=== PATIENT | male | born 1965 | race Caucasian/White ===

== ENCOUNTER 2019-02-25 10:49 | Inpatient (IN) | payer OTHER, MEDICAID ==
[~2019-02-25] VITALS: Ht 175.3 cm; Wt 61.3 kg
--- NOTE | 2019-02-25 10:49 | NUR ---
Patient BIBA ACLS, transferred to bed 9. RN evaluating patient at bedside.
[2019-02-25] MEDS ORDERED: NACL 0.9% 1,000 ML IV SCH ×3 (10:52→13:31)
[2019-02-25 10:56] VITALS: BP 88/58
--- NOTE | 2019-02-25 11:01 | NUR ---
XRAY AT BEDSIDE
--- NOTE | 2019-02-25 11:02 | NUR ---
LAB AT BEDSIDE
[2019-02-25] MEDS ORDERED: MULT-153 PO (11:04)
[2019-02-25] MEDS ORDERED: ONDA4TAB PO ×2 (11:04→13:54)
[2019-02-25] MEDS ORDERED: RIVA20TA PO (11:04)
[2019-02-25] MEDS ORDERED: CARV3.122 PO (11:04)
[2019-02-25] MEDS ORDERED: SIMV10TA1 PO (11:04)
[2019-02-25] MEDS ORDERED: FLEPED RC (11:04)
[2019-02-25] MEDS ORDERED: DOCU-299 PO (11:04)
[2019-02-25] MEDS ORDERED: BISA-213 RC (11:04)
[2019-02-25] MEDS ORDERED: MAGN400S60 PO (11:04)
[2019-02-25] MEDS ORDERED: FERR325E14 PO (11:04)
[2019-02-25] MEDS ORDERED: FAMO-90 PO (11:04)
[2019-02-25] MEDS ORDERED: ACET325C8 PO (11:04)
[2019-02-25] MEDS ORDERED: MELO7.5T11 PO (11:04)
[2019-02-25] MEDS ORDERED: DIVA500T1 PO (11:04)
[2019-02-25] MEDS ORDERED: AMIO200T5 PO (11:04)
[2019-02-25] MEDS ORDERED: SYN.075 PO (11:04)
[2019-02-25] MEDS ORDERED: ACET-2619 PO (11:04)
--- NOTE | 2019-02-25 11:16 | NUR ---
BP 86/60
--- NOTE | 2019-02-25 11:17 | NUR ---
BIBA FROM [facility] FOR ABNORMAL LABS-ELEVATED BUN PTS BASELINE IS NON-ORIENTED PMH-DEPRESSION, R WRIST CONTRACTURE, CONVULSIONS, SCHIZO, CEREBAL PALSY, DYSPHAGIA, FACE CELLULITITS, UNSPECIFIED LACK OF EXPECTED NORMAL PHYSYIOLOGICAL DEVELOPMENT, GENERALIZED WEAKNESS
[2019-02-25 11:21] LABS: HEMATOCRIT 33.9 % (36-52); HEMOGLOBIN 10.9 g/dL (12.0-18.0); MEAN CORPUSCULAR HEMOGLOBIN 29 pg (27-31); MEAN CORPUSCULAR HGB CONC 32 g/dL (33-37); MEAN CORPUSCULAR VOLUME 90.4 fL (80-94); PLATELET COUNT (AUTO) 190 K/uL (140-450); RED BLOOD CELL COUNT(AUTO) 3.74 MIL/uL (4.20-6.10); RED CELL DISTRIBUTION WIDTH 14.9 % (11.6-13.7); WHITE BLOOD COUNT (AUTO) 24.5 K/uL (4.8-10.8)
[2019-02-25 11:43] LABS: LYMPHOCYTES % (MANUAL) 3 % (20-46); MONOCYTES % (MANUAL) 4 % (5-12)
[2019-02-25 11:55] LABS: ANION GAP 18.8 (8-16); CARBON DIOXIDE 21.4 mmol/L (21-32); CREATININE 2.8 mg/dL (0.7-1.3); POTASSIUM 3.2 mmol/L (3.5-5.1); TOTAL BILIRUBIN 0.3 mg/dL (0.0-1.0)
--- NOTE | 2019-02-25 12:04 | NUR ---
BUN 106 AND LACTIC ACID 2.7, REPORTED TO DR WALLIS Addendum: 02/25/19 at 1205 by [email or web address] LACTIC ACID 2.6
[2019-02-25] MEDS ORDERED: NACL 0.9% 1,000 ML IV ONE (12:15)
--- NOTE | 2019-02-25 12:18 | NUR ---
DR WALLIS NOTIFIED OF PTS BP, ANOTHER BOLUS STARTED
--- NOTE | 2019-02-25 12:27 | NUR ---
DR WALLIS AT BEDSIDE
[2019-02-25] MEDS ORDERED: MORPHINE SULFATE 2 MG/ML SYR IVP PRN (12:40)
[2019-02-25] MEDS ORDERED: ACETAMINOPHEN 325 MG TAB PO PRN ×2 (12:40→13:35)
[2019-02-25] MEDS ORDERED: HYDROcodone/APAP 5/325 MG 1 TAB TAB PO PRN (12:40)
[2019-02-25] MEDS ORDERED: ONDANSETRON 4 MG/2 ML VIAL IM/IVP PRN ×2 (12:40→13:35)
[2019-02-25] MEDS ORDERED: LORazepam 2 MG/ML VIAL IM/IVP PRN ×3 (12:40→15:25)
--- NOTE | 2019-02-25 12:50 | NUR ---
RESIDENTS AT BEDSIDE
--- NOTE | 2019-02-25 12:51 | NUR ---
NO OPEN WOUNDS, PRESSURE ULCERS PRESENT UPON EXAMINATION. RESIDENTS ASSISTED
[2019-02-25 13:10] VITALS: BP 101/56
--- NOTE | 2019-02-25 13:10 | NUR ---
Patient will be admitted to care of [facility]. Admited to TELE. Will go to room 122B. Belongings list completed. Report to TONO LEUNG.
--- NOTE | 2019-02-25 13:10 | NUR ---
RECEIVED REPORT FROM ED RN DENICE. PT IS AAOX1 TO NAME. PT SKIN IS NON INTACT. PT HAS A RIGHT HIP OPEN WOUND AND A RIGHT INNER FOOT PRESSURE AREA. PHOTOS TAKEN AND PLACED IN CHART. MRSA TAKEN AND SENT TO LAB. PT HAVING DIARRHEA. STOOL SAMPLE FOR R/O C.DIFF SENT TO LAB. PT IV IN THE RIGHT AC 20G INFUSING 0.45%NA AT 125ML/HR. EXPLAINED POC TO PT BUT PT UNABLE TO VERBALIZE UNDERSTANDING. WILL MONITOR PT CLOSELY. BED IN LOW POSITION, CALL LIGHT WITHIN REACH. FALL RISK PROTOCOL IN PLACE.
[2019-02-25] MEDS ORDERED: MAGNESIUM HYDROXIDE 2400 MG/30 ML UDC PO PRN (13:40)
[2019-02-25] MEDS ORDERED: ACETAMINOPHEN EXTRA STRENGTH 500 MG TAB PO PRN (13:40)
[2019-02-25] MEDS ORDERED: SODIUM PHOSPHATE 118 ML ENEM RC PRN (13:40)
[2019-02-25] MEDS ORDERED: BISACODYL 10 MG SUPP RC PRN (13:40)
[2019-02-25 14:10] LABS: PROTHROMBIN TIME 10.8 secs (10.8-13.4)
[2019-02-25 14:32] LABS: MAGNESIUM 2.5 mg/dL (1.8-2.4); PHOSPHORUS 3.9 mg/dL (2.5-4.9); THYROID STIMULATING HORMONE 0.4 uIU/mL (0.34-3.74)
[2019-02-25] MEDS: NACL 0.45% 1,000 ML IV SCH ×2 (15:23→23:00)
--- NOTE | 2019-02-25 15:27 | NUR ---
PT SLEEPING COMFORTABLY IN BED. ALL NEEDS MET. WILL CONTINUE TO ROUND FREQUENTLY ON PT.
[2019-02-25 16:00] VITALS: BP 102/56
[2019-02-25] MEDS ORDERED: POTASSIUM CHLORIDE 40 MEQ, LIDOCAINE MPF 1% 25 MG in NACL 0.9% 250 ML IV SCH ×2 (16:00→18:00)
[2019-02-25 16:16] LABS: APPEARANCE,URINE CLEAR (CLEAR); BILIRUBIN,URINE NEGATIVE (NEGATIVE); BLOOD, URINE 1+ (NEGATIVE); COLOR,URINE YELLOW (YELLOW); LEUKOCYTE ESTERASE ,URINE 1+ (NEGATIVE); NITRITE, URINE NEGATIVE (NEGATIVE); UGLUCOSE NEGATIVE (NEGATIVE)
[2019-02-25 16:25] LABS: BARBITURATE, URINE NEG. ng/ml (NEG <=200); BENZODIAZEPINE, URINE NEG. ng/mL (NEG <=200); CANNABINOID, URINE NEG. ng/mL (NEG <=50); COCAINE, URINE NEG. ng/mL (NEG <=300); OPIATE, URINE NEG. ng/mL (NEG <=2000); PHENCYCLIDINE SCREEN,URINE NEG. ng/mL (NEG <=25)
[2019-02-25] MEDS ORDERED: AZITHROMYCIN 500 MG in DEXTROSE 5% 250 ML IV SCH (17:00)
--- NOTE | 2019-02-25 17:14 | NUR ---
PT SLEEPING. NO SIGNS OF PAIN OR DISTRESS. WILL CONTINUE TO MONITOR PT CLOSELY.
[2019-02-25] MEDS: FERROUS SULFATE 325 MG TABEC PO SCH (17:33)
--- NOTE | 2019-02-25 19:44 | NUR ---
ENDORSED PT TO SELF CONTAINED BEHAVIOR UNIT TEACHER FOR CONTINUITY OF CARE. PT INSTABLE CONDITION AT THIS TIME.
--- NOTE | 2019-02-25 19:45 | NUR ---
RECEIVED REPORT AT BEDSIDE FORM TONO LEUNG DAYSHIFT NURSE AT BEDSIDE FOR CONTINUITY OF CARE, PT IN STABLE CONDITION.
[2019-02-25 20:00] VITALS: BP 99/61
--- NOTE | 2019-02-25 20:00 | NUR ---
PT IN BED AOX1, ALL FALLS PRECAUTIONS IN PLACE. V/S FOLLOWS T 100.1 P 105 R 20 B/P 99/61 02 90% ON ROOM AIR. PT HAS NO FACIAL EXPRESSION OF PAIN OR DISTRESS. POTASSIUM RUNNING ORDERED VIA RAC 20G.
[2019-02-25] MEDS ORDERED: SIMVASTATIN 10 MG TAB PO SCH (21:00)
[2019-02-25] MEDS: CARVEDILOL 3.125 MG TAB PO SCH (21:00)
--- NOTE | 2019-02-25 21:00 | NUR ---
PT RECEIVED COLACE, DEPAKOTE AND TYLENOL FOR INCREASED TEMP. COREG HELD DUE TO LOW B/P.
[2019-02-25] MEDS: DOCUSATE SODIUM 100 MG GELCAP PO SCH (21:29)
[2019-02-25] MEDS: DIVALPROEX 500 MG TABEC PO SCH (21:30)
[2019-02-25] MEDS: ACETAMINOPHEN 325 MG TAB PO PRN (21:34)
[2019-02-26] VITALS: BP 90/57
--- NOTE | 2019-02-26 00:15 | NUR ---
PT WAS TURNED, CHANGED AND REPOSITIONED IN BED. V/S FOLLOWS T 97.9 P 93 R 18 B/P 89/57 02 94% ON ROOM AIR. ALL FALLS PRECAUTIONS IN PLACE.
--- NOTE | 2019-02-26 02:10 | NUR ---
FELICIA FROM THE LAB CALLED TO REPORT A CRITICAL RESULT OF + GRAM COCCI IN THE BLOOD. TOLD MD RODRIGUEZ, WHO WILL REFER TO DAY TEAM FOR ANY NEW ORDERS.
[2019-02-26 04:00] VITALS: BP 103/58
--- NOTE | 2019-02-26 04:00 | NUR ---
PT IN BED ALL FALLS AND SEIZURE PRECAUTIONS N PLACE. IV SITE INTACT AND RUNNING 1/2 NS AT 125MLS/HR. V/S FOLLOWS T 98.3 P 94 R 18 02 94 B/P 103/58. 02 ON ROOM AIR. PT TURNED , CHANGED AND REPOSITIONED.
[2019-02-26] MEDS: LEVOTHYROXINE 0.075 MG TAB PO SCH (06:14)
[2019-02-26] MEDS: NACL 0.45% 1,000 ML IV SCH ×3 (06:18→21:05)
[2019-02-26 06:45] LABS: BASOPHILS % (AUTO) 0.1 % (0.0-2.0); HEMATOCRIT 34.9 % (36-52); HEMOGLOBIN 11.2 g/dL (12.0-18.0); LYMPHOCYTES # (AUTO) 0.8 K/uL (2.0-11.5); LYMPHOCYTES % (AUTO) 3.9 % (20.5-51.1); MEAN CORPUSCULAR HEMOGLOBIN 29 pg (27-31); MEAN CORPUSCULAR HGB CONC 32 g/dL (33-37); MEAN CORPUSCULAR VOLUME 90.7 fL (80-94); MONOCYTES # (AUTO) 1.7 K/uL (0.8-1.0); MONOCYTES % (AUTO) 8.5 % (1.7-9.3); NEUTROPHILS # (AUTO) 17.4 K/uL (1.8-7.7); NEUTROPHILS % (AUTO) 87.5 % (42.2-75.2); PLATELET COUNT (AUTO) 157 K/uL (140-450); RED BLOOD CELL COUNT(AUTO) 3.85 MIL/uL (4.20-6.10); RED CELL DISTRIBUTION WIDTH 15.1 % (11.6-13.7); WHITE BLOOD COUNT (AUTO) 19.8 K/uL (4.8-10.8)
[2019-02-26 07:10] LABS: ANION GAP 15.1 (8-16); CARBON DIOXIDE 23.8 mmol/L (21-32); CREATININE 2.2 mg/dL (0.7-1.3); POTASSIUM 3.9 mmol/L (3.5-5.1)
--- NOTE | 2019-02-26 07:15 | NUR ---
REPORT GIVEN TO QUINN LEUNG DAYSHIFT AT BEDSIDE FOR CONTINUITY IF CARE, PT IN STABLE CONDITION.
--- NOTE | 2019-02-26 07:16 | NUR ---
RECEIVED REPORT FROM HOTEL MAINTENANCE ENGINEER NURSE HITESH FOR CONTINUITY OF CARE. PT IN STABLE CONDITION. RESPIRATIONS EVEN AND UNLABORED. IV INTACT AND PATENT. SAFETY MEASURES IN PLACE. BED IN LOW POSITION. CALL LIGHT AT BEDSIDE. BED ALARM ON. WILL CONTINUE TO MONITOR.
[2019-02-26 07:20] LABS: CHOL/HDL RATIO 4.5 (1-4.5); MAGNESIUM 2.6 mg/dL (1.8-2.4); PHOSPHORUS 3.1 mg/dL (2.5-4.9)
[2019-02-26 08:00] VITALS: BP 103/61
[2019-02-26] MEDS ORDERED: CELECOXIB 100 MG CAP PO SCH (09:00)
--- NOTE | 2019-02-26 09:45 | NUR ---
GAVE ORDERED DUE MEDICATIONS AT THIS TIME. PT TOLERATED WELL. WILL CONTINUE TO MONITOR.
[2019-02-26] MEDS: FERROUS SULFATE 325 MG TABEC PO SCH ×2 (09:54→17:56)
[2019-02-26] MEDS: AMIODARONE 200 MG TAB PO SCH (09:54)
[2019-02-26] MEDS: DOCUSATE SODIUM 100 MG GELCAP PO SCH ×2 (09:54→21:07)
[2019-02-26] MEDS: FAMOTIDINE 20 MG TAB PO SCH (09:54)
[2019-02-26] MEDS: DIVALPROEX 500 MG TABEC PO SCH ×2 (09:54→21:07)
[2019-02-26] MEDS: MULTIVITAMIN 1 TAB PO SCH (09:55)
[2019-02-26] MEDS: CARVEDILOL 3.125 MG TAB PO SCH ×2 (09:55→21:07)
[2019-02-26] MEDS: Z-GUARD PASTE TP SCH ×2 (09:55→17:13)
[2019-02-26] MEDS ORDERED: SODIUM FERRIC GLUCONATE 125 MG in NACL 0.9% 100 ML IV SCH (10:00)
[2019-02-26] MEDS: HYDROcodone/APAP 5/325 MG 1 TAB TAB PO PRN (10:01)
--- NOTE | 2019-02-26 10:42 | NUR ---
INSERTED BLAIR CATHETER AT THIS TIME. PT TOLERATED WELL. BED IN LOW POSITION. CALL LIGHT AT BEDSIDE. BED ALARM ON. WILL CONTINUE TO MONITOR.
[2019-02-26 12:00] VITALS: BP 101/59
[2019-02-26 12:14] LABS: FOLIC ACID 16.9 ng/mL (>3.0)
--- NOTE | 2019-02-26 12:41 | NUR ---
REPOSITIONED, SPONGE BATH. PT TOLERATED WELL. BED IN LOW POSITION. CALL LIGHT AT BEDSIDE. BED ALARM ON. WILL CONTINUE TO MONITOR.
--- NOTE | 2019-02-26 14:02 | NUR ---
PT LYING IN BED SLEEPING AT THIS TIME. BED IN LOW POSITION. CALL LIGHT AT BEDSIDE. BED ALARM ON. WILL CONTINUE TO MONITOR.
[2019-02-26 16:00] VITALS: BP 102/60
--- NOTE | 2019-02-26 16:30 | NUR ---
REPOSITIONED AND CHANGED AT THIS TIME. BED IN LOW POSITION. CALL LIGHT AT BEDSIDE. BED ALARM ON. WILL CONTINUE TO MONITOR.
[2019-02-26] MEDS ORDERED: FERROUS SULFATE 325 MG TABEC PO SCH (17:00)
[2019-02-26] MEDS: AZITHROMYCIN 250 MG in DEXTROSE 5% 250 ML IV SCH (17:58)
[2019-02-26] MEDS: RIVAROXABAN 15 MG TAB PO SCH (17:58)
--- NOTE | 2019-02-26 18:20 | NUR ---
PT LYING IN BED IN STABLE CONDITION SLEEPING. BED IN LOW POSITION. CALL LIGHT AT BEDSIDE. BED ALARM ON. WILL CONTINUE TO MONITOR.
--- NOTE | 2019-02-26 19:19 | NUR ---
GAVE REPORT TO ART GALLERY INTERNSHIP NURSE RAY FOR CONTINUITY OF CARE.
--- NOTE | 2019-02-26 19:20 | NUR ---
Received endorsement from AM shift RN; patient A/Ox1, aphasic, bedbound. Introduced self, updated board. On contact precautions for MRSA nares; observed and maintained. No SOB or distress noted, on room air. IV site on right antecubital, 20 gauge, running IVF at 125mL/hr. Skin non-intact; noted with right hip and right foot wounds. Bed in the lowest position, call light within reach. Initial assessment done. Will continue to monitor. Addendum: 02/26/19 at 1929 by Lior Ford RN Reynold in place.
[2019-02-26 20:00] VITALS: BP 110/61
--- NOTE | 2019-02-26 20:50 | NUR ---
Vitals taken, no SOB or distress noted.
[2019-02-26] MEDS: MUPIROCIN CA NASAL 2% 1GM TUBE NS SCH (21:05)
[2019-02-26] MEDS: CHLORHEXADINE GLUC 2% CLOTH TP SCH (21:06)
--- NOTE | 2019-02-26 21:55 | NUR ---
Due meds given with apple sauce, tolerated well.
--- NOTE | 2019-02-26 23:53 | NUR ---
Vitals taken; patient noted with desaturation of 88%; head of the bed raised and patient placed on oxygen 2LPM via nasal cannula. RT made aware. Addendum: 02/26/19 at 2355 by Lior Ford RN Wrong patient.
[2019-02-27] VITALS: BP 111/67
--- NOTE | 2019-02-27 02:11 | NUR ---
Rounds done; no SOB or distress noted.
[2019-02-27] MEDS: NACL 0.45% 1,000 ML IV SCH ×4 (02:24→22:53)
[2019-02-27] MEDS: ACETAMINOPHEN 325 MG TAB PO PRN (03:45)
--- NOTE | 2019-02-27 03:50 | NUR ---
Vitals taken; patient noted with 100.1 fever. Will medicate with PRN Tylenol for fever.
[2019-02-27 04:00] VITALS: BP 112/66
--- NOTE | 2019-02-27 05:00 | NUR ---
Temperature re-taken; noted with 97.9 temperature; fever reduced.
[2019-02-27] MEDS: LEVOTHYROXINE 0.075 MG TAB PO SCH (06:11)
--- NOTE | 2019-02-27 06:28 | NUR ---
Vitals stable, due meds given. Will endorse to AM shift RN for continuity of care.
--- NOTE | 2019-02-27 07:25 | NUR ---
RECEIVED REPORT FROM CURTAIN FITTER NURSE FOR CONTINUITY OF CARE. PT IN STABLE CONDITION. IV INTACT AND PATENT. RESPIRATIONS EVEN AND UNLABORED. SAFETY MEASURES IN PLACE. BED IN LOW POSITION. BED ALARM ON. CALL LIGHT AT BEDSIDE. WILL CONTINUE TO MONITOR.
[2019-02-27 07:38] LABS: BASOPHILS % (AUTO) 0.1 % (0.0-2.0); EOSINOPHILS % (AUTO) 0.1 % (0.0-4.0); HEMATOCRIT 28.2 % (36-52); HEMOGLOBIN 9.1 g/dL (12.0-18.0); LYMPHOCYTES # (AUTO) 0.9 K/uL (2.0-11.5); MEAN CORPUSCULAR HEMOGLOBIN 29 pg (27-31); MEAN CORPUSCULAR HGB CONC 32 g/dL (33-37); MEAN CORPUSCULAR VOLUME 90.6 fL (80-94); MONOCYTES # (AUTO) 1.3 K/uL (0.8-1.0); MONOCYTES % (AUTO) 8.3 % (1.7-9.3); NEUTROPHILS # (AUTO) 13.1 K/uL (1.8-7.7); NEUTROPHILS % (AUTO) 85.5 % (42.2-75.2); PLATELET COUNT (AUTO) 124 K/uL (140-450); RED BLOOD CELL COUNT(AUTO) 3.11 MIL/uL (4.20-6.10); RED CELL DISTRIBUTION WIDTH 14.9 % (11.6-13.7); WHITE BLOOD COUNT (AUTO) 15.3 K/uL (4.8-10.8)
[2019-02-27 07:48] LABS: ANION GAP 12.6 (8-16); CARBON DIOXIDE 22.9 mmol/L (21-32); CREATININE 1.3 mg/dL (0.7-1.3); POTASSIUM 3.5 mmol/L (3.5-5.1)
[2019-02-27 07:55] LABS: PHOSPHORUS 1.8 mg/dL (2.5-4.9)
[2019-02-27 08:00] VITALS: BP 104/68
[2019-02-27] MEDS: CARVEDILOL 3.125 MG TAB PO SCH ×2 (09:00→21:11)
[2019-02-27] MEDS: FAMOTIDINE 20 MG TAB PO SCH (09:56)
[2019-02-27] MEDS: MULTIVITAMIN 1 TAB PO SCH (09:56)
[2019-02-27] MEDS: AMIODARONE 200 MG TAB PO SCH (09:57)
[2019-02-27] MEDS: Z-GUARD PASTE TP SCH ×2 (09:57→17:18)
[2019-02-27] MEDS: DOCUSATE SODIUM 100 MG GELCAP PO SCH ×2 (09:57→21:11)
[2019-02-27] MEDS: DIVALPROEX 500 MG TABEC PO SCH ×2 (09:57→21:11)
[2019-02-27] MEDS: FERROUS SULFATE 325 MG TABEC PO SCH ×2 (09:57→17:18)
[2019-02-27] MEDS: HYDROcodone/APAP 5/325 MG 1 TAB TAB PO PRN (10:14)
--- NOTE | 2019-02-27 10:14 | NUR ---
GAVE PAIN MEDICATION AT THIS TIME. FACIAL GRIMACING.
[2019-02-27] MEDS ORDERED: SODIUM PHOS / POTASSIUM PHOS 1 PKT PDR PO SCH (11:30)
[2019-02-27 12:00] VITALS: BP 108/63
[2019-02-27] MEDS: MORPHINE SULFATE 2 MG/ML SYR IVP PRN (12:34)
--- NOTE | 2019-02-27 12:41 | NUR ---
GAVE ORDERED DUE MEDICATIONS AT THIS TIME. PT IN STABLE CONDITION. BED IN LOW POSITION. CALL LIGHT AT BEDSIDE. BED ALARM ON.
--- NOTE | 2019-02-27 13:27 | NUR ---
PATIENT HAS BEEN SCREENED AND CATEGORIZED HIGH NUTRITION RISK. PATIENT WILL BE SEEN WITHIN 1-2 DAYS OF ADMISSION. 02/26/19 - 02/27/19 CHANELL DE LA CRUZ MBA, RD
--- NOTE | 2019-02-27 14:15 | NUR ---
PT LYING IN BED IN STABLE CONDITION. RESPIRATIONS EVEN AND UNLABORED. BED IN LOW POSITION. CALL LIGHT AT BEDSIDE. BED ALARM ON.
--- NOTE | 2019-02-27 15:24 | NUR ---
02/27/19 RD INITIAL ASSESSMENT COMPLETED PLEASE REFER TO NUTRITION ASSESSMENT UNDER CARE ACTIVITY FOR ESTIMATED NUTRITIONAL NEEDS. RD RECOMMENDATIONS: 1. RECOMMEND CONTINUE PUREE DIET 2. ADD HS WITH MEALS TID WITH POOR PO INTAKES 3. F/U 2-3 DAYS; HIGH RISK CHANELL DE LA CRUZ MBA, RD
[2019-02-27 16:00] VITALS: BP 116/73
--- NOTE | 2019-02-27 16:41 | NUR ---
REPOSITIONED PT AT THIS TIME. PT TOLERATED WELL. GAVE ORDERED DUE MEDICATION AT THIS TIME. BED IN LOW POSITION. CALL LIGHT AT BEDSIDE. BED ALARM ON.
[2019-02-27] MEDS: AZITHROMYCIN 250 MG in DEXTROSE 5% 250 ML IV SCH (17:18)
[2019-02-27] MEDS: RIVAROXABAN 15 MG TAB PO SCH (17:22)
--- NOTE | 2019-02-27 18:15 | NUR ---
PT SLEEPING AT THIS TIME. RESPIRATIONS EVEN AND UNLABORED. BED IN LOW POSITION. BED ALARM ON. CALL LIGHT AT BEDSIDE. WILL CONTINUE TO MONITOR.
--- NOTE | 2019-02-27 19:30 | NUR ---
GAVE REPORT TO POURED CONCRETE WALL TECHNICIAN NURSE ROLAND FOR CONTINUITY OF CARE. PT IN STABLE CONDITION.
[2019-02-27 20:00] VITALS: BP 124/63
--- NOTE | 2019-02-27 20:00 | NUR ---
ASSUMED CARE. RECEIVED RESTING IN BED. AROUSABLE,NON-VERBAL. AFEBRILE, NOT IN ACUTE DISTRESS. NO PAIN OR DISCOMFORT NOTED. IV FLUID 1/2 NS INFUSING AT 160 ML/HR VIA RIGHT AC #20 IV LINE/ SAO2=99% ON RA. BLAIR CATHETER DRAINING CLEAR YELLOW URINE. SINUS RHYTHM AT 90'S ON THE MONITOR. VS STABLE, WILL CONTINUE TO MONITOR. NEEDS ATTENDED.
[2019-02-27] MEDS: MUPIROCIN CA NASAL 2% 1GM TUBE NS SCH (21:10)
[2019-02-27] MEDS: CHLORHEXADINE GLUC 2% CLOTH TP SCH (21:11)
--- NOTE | 2019-02-27 21:11 | NUR ---
DUE MEDICATIONS GIVEN SCHEDULED.
[2019-02-28] VITALS: BP 109/60
--- NOTE | 2019-02-28 | NUR ---
ASLEEP,NOT IN ANY KIND OF DISTRESS. NO PAIN OR DISCOMFORT NOTED. SIDE RAILS UP,CALL LIGHT WITHIN REACH. KEPT WARM AND COMFORTABLE. VS REMAIN STABLE.
[2019-02-28 04:00] VITALS: BP 105/59
--- NOTE | 2019-02-28 04:00 | NUR ---
ASLEEP, NO SIGNIFICANT CHANGE IN CONDITION. PT.REMAINS STABLE AND PAIN FREE.
[2019-02-28] MEDS: LEVOTHYROXINE 0.075 MG TAB PO SCH (06:43)
[2019-02-28] MEDS: NACL 0.45% 1,000 ML IV SCH ×4 (06:43→22:54)
--- NOTE | 2019-02-28 07:10 | NUR ---
RECEIVED REPORT FROM SHEET METAL LAYOUT MECHANIC NURSE. PATIENT IS SLEEPING IN BED, VISIBLE CHEST RISE AND FALL, ON ROOM AIR. IV TO RIGHT AC 20G. PATIENT IS A&O X1 AND BEDBOUND. WILL CONTINUE WITH PLAN OF CARE.
[2019-02-28 07:17] LABS: BASOPHILS # (AUTO) 0.1 K/uL (0.00-0.22); BASOPHILS % (AUTO) 0.4 % (0.0-2.0); EOSINOPHILS # (AUTO) 0.1 K/uL (0-0.4); EOSINOPHILS % (AUTO) 0.4 % (0.0-4.0); HEMATOCRIT 29.9 % (36-52); HEMOGLOBIN 9.4 g/dL (12.0-18.0); LYMPHOCYTES # (AUTO) 1.2 K/uL (2.0-11.5); LYMPHOCYTES % (AUTO) 7.2 % (20.5-51.1); MEAN CORPUSCULAR HEMOGLOBIN 29 pg (27-31); MEAN CORPUSCULAR HGB CONC 32 g/dL (33-37); MEAN CORPUSCULAR VOLUME 91.7 fL (80-94); MONOCYTES # (AUTO) 1.5 K/uL (0.8-1.0); MONOCYTES % (AUTO) 9.5 % (1.7-9.3); NEUTROPHILS # (AUTO) 13.4 K/uL (1.8-7.7); NEUTROPHILS % (AUTO) 82.5 % (42.2-75.2); PLATELET COUNT (AUTO) 138 K/uL (140-450); RED BLOOD CELL COUNT(AUTO) 3.26 MIL/uL (4.20-6.10); RED CELL DISTRIBUTION WIDTH 14.8 % (11.6-13.7); WHITE BLOOD COUNT (AUTO) 16.2 K/uL (4.8-10.8)
--- NOTE | 2019-02-28 07:20 | NUR ---
ENDORSED CARE TO GIOVANNA LEUNG.
[2019-02-28 07:29] LABS: ANION GAP 12.7 (8-16); CARBON DIOXIDE 23.4 mmol/L (21-32); CREATININE 1.1 mg/dL (0.7-1.3); POTASSIUM 4.1 mmol/L (3.5-5.1)
[2019-02-28 07:39] LABS: MAGNESIUM 1.8 mg/dL (1.8-2.4); PHOSPHORUS 1.8 mg/dL (2.5-4.9)
[2019-02-28 08:00] VITALS: BP 114/67
[2019-02-28] MEDS: DOCUSATE SODIUM 100 MG GELCAP PO SCH ×2 (09:00→21:14)
[2019-02-28] MEDS: Z-GUARD PASTE TP SCH ×2 (09:00→17:06)
[2019-02-28] MEDS: MULTIVITAMIN 1 TAB PO SCH (09:50)
[2019-02-28] MEDS: FAMOTIDINE 20 MG TAB PO SCH (09:50)
[2019-02-28] MEDS: CARVEDILOL 3.125 MG TAB PO SCH ×2 (09:51→21:18)
[2019-02-28] MEDS: DIVALPROEX 500 MG TABEC PO SCH ×2 (09:52→21:15)
[2019-02-28] MEDS: FERROUS SULFATE 325 MG TABEC PO SCH ×2 (09:52→17:00)
[2019-02-28] MEDS: AMIODARONE 200 MG TAB PO SCH (09:52)
--- NOTE | 2019-02-28 09:55 | NUR ---
CRUSHED MORNING MEDICATION AND MIXED WITH APPLESAUCE. PATIENT DID NOT SWALLOW THE FIRST BITE AND BEGAN COUGHING. MEDICATION WAS NOT ADMINISTERED.
[2019-02-28] MEDS: MORPHINE SULFATE 2 MG/ML SYR IVP PRN ×2 (10:54→16:15)
--- NOTE | 2019-02-28 10:57 | NUR ---
ADMINISTERED MORPHINE FOR PAIN. PATIENT WAS GRIMACING, CRYING AND GRASPING SITE. WILL RE-ASSESS
[2019-02-28] MEDS ORDERED: SODIUM PHOS / POTASSIUM PHOS 1 PKT PDR PO SCH (11:00)
[2019-02-28 12:00] VITALS: BP 106/71
--- NOTE | 2019-02-28 12:35 | NUR ---
PLACED PATIENT ON HEEL RAISERS FOR DEEP TISSUE INJURY TO FEET BILATERALLY.
--- NOTE | 2019-02-28 13:01 | NUR ---
WOUND CARE EVALUATION NOTE: REASON FOR EVALUATION: RIGHT FOOT ULCER WOUND SKIN ASSESSMENT DONE WITH THIS 54 Y/O MALE PT ADMITTED FROM [facility] TO [facility] WITH INITIAL DX OF ABNORMAL LABS. PAST MEDICAL HX INCLUDES HTN, MDD AND SCHIZOPHRENIA. PT. ADMITTED WITH MULTIPLE DTI TO RIGHT FOOT/TOES. ALL ABOVE INFORMATION OBTAINED FROM ADMISSION H&P. PT IS AWAKE. SKIN IS WARM AND DRY, CONTRACTURES TO ALL EXTREMITIES, UNABLE TO HAVE PALM AND FINGERS ASSESS DUE TO CONTRACTURES. BLE NO HAIR GROWTH, +1 EDEMAS TO BILATERAL LOWER LEGS. BILATERAL DORSAL PEDAL PULSES PRESENT AND NORMAL, FUNGAL NAILS OBSERVED. PLAN OF CARE DISCUSSED WITH PRIMARY RN AND PT. PT. VERBALIZING UNDERSTANDING INTEGUMENTARY: -OLD HEALED SCARS TO SCROTAL AREAS, LEFT ISCHIUM, SACROCOCCYX, RIGHT ISCHIUM, SKIN INTACT -PRESSURE ULCER STAGE 1 TO LEFT MEDIAL FOOT NON-BLANCHABLE REDNESS 3X2 CM -MULTIPLE DTI TO RIGHT FOOT/RIGHT HALLUX, 2ND, 3RD, 4TH AND 5TH DIGIT TOES WITH LARGEST TO RIGHT 4TH DIGIT TOE 1.5X1.5 CM AND RIGHT LATERAL METATARSAL 1.5x1.5CM -PRESSURE ULCER UN-STAGEABLE TO RIGHT HIP 0.5X0.5CM BROWN SCAB, SURROUNDING TISSUE REDNESS 1X1CM INDICATED FURTHER DAMAGE. -LEFT/RIGHT HEELS THIN CALLUS RECOMMENDATIONS: -V/A ULTRASOUNDS TO BILATERAL LOWER EXTREMITIES -APPLY HYDRAGRAN TO OLD HEALED SCARS TO SCROTAL AREAS, LEFT ISCHIUM, SACROCOCCYX, RIGHT ISCHIUM, BID AND CARL -CLEANSE RIGHT FOOT/TOES DTI WITH NS AND GAUZE, PAT DRY, APPLY SKIN PREP BID AND CARL -PAINT RIGHT HIP SCAB WITH BETADINE ANGELA. BID AND CARL -APPLY HEEL RAISER TO RIGHT AND LEFT HEELS AT ALL TIMES -OFFLOAD BILATERAL HEELS BY PLACING PILLOWS UNDER CALVES UNLESS OTHERWISE CONTRAINDICATED -PRESSURE REDISTRIBUTION SURFACE THERAPY -TURN AND REPOSITION Q2H, OFFLOAD SACRALCOCCYX BY TURNING RIGHT AND LEFT -CONTINUE TO FOLLOW RD RECOMMENDATIONS ALL ABOVE RECOMMENDATIONS DISCUSSED WITH PRIMARY RN WILL FOLLOW UP PT Q7-10 DAYS. PLEASE CONTACT WOUND CARE NURSE FOR ANY QUESTION AND CHANGE OF WOUND CONDITION.
--- NOTE | 2019-02-28 13:33 | NUR ---
*S.T. Bedside swallow eval completed* Pt presents with suspect sensory difficulty or strong texture preference to liquids that are sweetened versus savory purees and solid textures. Pt demonstrated cough and inconsistent gag response to purees and solids, but able to initiate swallows of liquids (juices, mighty milkshake) w/ straw w/o difficulty, including sequences of consecutive swallows. No overt s/s aspiration observed. Oropharyngeal dysphagia is not suspected but a behavioral response to solid textures. Recommend: 1) Continue pureed diet, thin liquids okay. Straws okay. 2) P.O. meds crushed and mixed w/ thick liquids such as shake or juice. 3) 1:1 feeder w/ aspiration precautions. Pt does not present w/ clinical dysphagia. Therefore, recommend DC to nsg care at this time. Endorsed to XOCHITL Ghosh. Time 6421-7413
[2019-02-28 16:00] VITALS: BP 110/66
--- NOTE | 2019-02-28 16:08 | NUR ---
TRANSFERRED PATIENT TO A WOUND BED. PATIENT IS IN 122-A.
--- NOTE | 2019-02-28 16:14 | NUR ---
RECEIVED CRITICAL OF LACTIC ACID OF 3.4. DR MARX MADE AWARE. NO CHANGE IN ORDERS
[2019-02-28] MEDS: ACETAMINOPHEN 325 MG TAB PO PRN (16:33)
--- NOTE | 2019-02-28 16:34 | NUR ---
ADMINISTERED TYLENOL FOR FEVER OF 100.4 CRUSHED AND MIXED WITH PUDDING.
[2019-02-28] MEDS: AZITHROMYCIN 250 MG in DEXTROSE 5% 250 ML IV SCH (17:00)
[2019-02-28] MEDS: RIVAROXABAN 15 MG TAB PO SCH (18:16)
--- NOTE | 2019-02-28 18:28 | NUR ---
HUNG AZITHROMYCIN IVPB. PATIENT IS SLEEPING IN BED, VISIBLE CHEST RISE AND FALL. WILL ENDORSE TO INFORMATION TECHNOLOGY SPECIALIST FOR CONTINUITY OF CARE.
[2019-02-28 20:00] VITALS: BP 105/57
--- NOTE | 2019-02-28 20:00 | NUR ---
ASSUMED CARE. RECEIVED RESTING IN BED. AFEBRILE, NOT IN ACUTE DISTRESS. NO PAIN OR DISCOMFORT NOTED. SAO2=99% ON ROOM AIR. IV FLUIDS 1/2 NS INFUSING AT 120 ML/HR VIA RIGHT AC #20 IV LINE. BLAIR CATHETER DRAINING CLEAR YELLOW URINE. SINUS RHYTHM AT 80'S ON THE MONITOR. VS STABLE, WILL CONTINUE TO MONITOR. NEEDS ATTENDED.
[2019-02-28] MEDS: MUPIROCIN CA NASAL 2% 1GM TUBE NS SCH (21:14)
[2019-02-28] MEDS: CHLORHEXADINE GLUC 2% CLOTH TP SCH (21:15)
--- NOTE | 2019-02-28 21:18 | NUR ---
YT=666/57. RESIDENT FITTING ROOM INSPECTOR SAID OK TO GIVE SCHEDULED COREG 3.125 MG. OTHER DUE MEDS ALSO GIVEN.
--- NOTE | 2019-02-28 23:52 | NUR ---
SYLWIA FROM THE LAB CALLED RE: LACTIC ACID=2.4 (IMPROVED). RESIDENT OSTEOPATHIC PHYSICIAN MADE AWARE.
[2019-03-01] VITALS: BP 112/72
--- NOTE | 2019-03-01 | NUR ---
ASLEEP., NOT IN ANY KIND OF DISTRESS. NO PAIN OR DISCOMFORT NOTED. SIDE RAILS UP,CALL LIGHT WITHIN REACH. KEPT WARM AND COMFORTABLE. WILL CONTINUE TO MONITOR. VS REMAIN STABLE.
[2019-03-01] MEDS: GAUZE TP SCH ×2 (01:05→13:01)
[2019-03-01] MEDS: HYDRAGUARD CREAM TP SCH ×2 (01:06→13:02)
[2019-03-01] MEDS: MORPHINE SULFATE 2 MG/ML SYR IVP PRN (01:21)
--- NOTE | 2019-03-01 01:21 | NUR ---
PT. NOTED TO BE MOANING. MORPHINE 1 MG IVP GIVEN ORDERED.
--- NOTE | 2019-03-01 02:20 | NUR ---
ASLEEP, NO PAIN OR DISCOMFORT AT THIS TIME.
[2019-03-01 04:00] VITALS: BP 111/70
--- NOTE | 2019-03-01 04:00 | NUR ---
ASLEEP, NO PAIN OR DISCOMFORT NOTED AT THIS TIME. NO SIGNIFICANT CHANGE IN CONDITION. VS REMAINS STABLE .
--- NOTE | 2019-03-01 05:20 | NUR ---
AM LABS DRAWN BY LAB.TANNING WHEEL FILLER.
[2019-03-01] MEDS: LEVOTHYROXINE 0.075 MG TAB PO SCH (06:15)
--- NOTE | 2019-03-01 06:15 | NUR ---
AWAKE, NO PAIN OR DISCOMFORT NOTED. DUE MEDICATION GIVEN.
[2019-03-01 06:41] LABS: ANION GAP 10.5 (8-16); CARBON DIOXIDE 25.8 mmol/L (21-32); CREATININE 1.1 mg/dL (0.7-1.3); POTASSIUM 4.3 mmol/L (3.5-5.1)
[2019-03-01 06:50] LABS: MAGNESIUM 1.6 mg/dL (1.8-2.4)
[2019-03-01 06:57] LABS: BASOPHILS % (AUTO) 0.1 % (0.0-2.0); EOSINOPHILS # (AUTO) 0.1 K/uL (0-0.4); EOSINOPHILS % (AUTO) 0.4 % (0.0-4.0); HEMATOCRIT 28.1 % (36-52); LYMPHOCYTES # (AUTO) 1.5 K/uL (2.0-11.5); LYMPHOCYTES % (AUTO) 8.7 % (20.5-51.1); MEAN CORPUSCULAR HEMOGLOBIN 29 pg (27-31); MEAN CORPUSCULAR HGB CONC 32 g/dL (33-37); MEAN CORPUSCULAR VOLUME 90.5 fL (80-94); MONOCYTES # (AUTO) 1.4 K/uL (0.8-1.0); MONOCYTES % (AUTO) 7.9 % (1.7-9.3); NEUTROPHILS # (AUTO) 14.4 K/uL (1.8-7.7); NEUTROPHILS % (AUTO) 82.9 % (42.2-75.2); PLATELET COUNT (AUTO) 169 K/uL (140-450); RED BLOOD CELL COUNT(AUTO) 3.11 MIL/uL (4.20-6.10); RED CELL DISTRIBUTION WIDTH 14.8 % (11.6-13.7); WHITE BLOOD COUNT (AUTO) 17.4 K/uL (4.8-10.8)
--- NOTE | 2019-03-01 07:10 | NUR ---
ENDORSED CARE TO ANGELIQUE RN STABLE.
--- NOTE | 2019-03-01 07:27 | NUR ---
Received report from nights shift nurse.
[2019-03-01 08:00] VITALS: BP 113/69
[2019-03-01] MEDS ORDERED: VANCOMYCIN PER PHARMACY MC PRN (08:40)
[2019-03-01] MEDS ORDERED: MAGNESIUM OXIDE 400 MG TAB PO SCH ×2 (08:47→18:00)
[2019-03-01] MEDS ORDERED: SODIUM PHOS / POTASSIUM PHOS 1 PKT PDR PO SCH ×2 (08:48→18:00)
[2019-03-01] MEDS: FAMOTIDINE 20 MG TAB PO SCH (09:24)
[2019-03-01] MEDS: DIVALPROEX 500 MG TABEC PO SCH ×2 (09:25→21:52)
[2019-03-01] MEDS: CARVEDILOL 3.125 MG TAB PO SCH ×2 (09:25→21:53)
[2019-03-01] MEDS: Z-GUARD PASTE TP SCH ×2 (09:26→17:10)
[2019-03-01] MEDS: DOCUSATE SODIUM 100 MG GELCAP PO SCH ×2 (09:26→21:53)
[2019-03-01] MEDS: FERROUS SULFATE 325 MG TABEC PO SCH ×2 (09:26→18:06)
[2019-03-01] MEDS: MULTIVITAMIN 1 TAB PO SCH (09:26)
[2019-03-01] MEDS: AMIODARONE 200 MG TAB PO SCH (09:26)
[2019-03-01] MEDS: NACL 0.45% 1,000 ML IV SCH (10:17)
[2019-03-01 11:00] VITALS: BP 101/61
[2019-03-01] MEDS: VANCOMYCIN 750 MG in DEXTROSE 5% 250 ML IV SCH ×2 (11:07→21:53)
--- NOTE | 2019-03-01 11:56 | NUR ---
PICC nurse paged for PICC insertion order. Awaiting call back from Walter (PICC nurse) for ETA.
--- NOTE | 2019-03-01 12:00 | NUR ---
Left voicemail for Sagrario Rivera (conservator) for PICC insertion consent. Awaiting call back. Received call from Walter PICC nurse & informed him consent still pending. Per Walter, call [phone] when consent is available.
[2019-03-01] MEDS: ACETAMINOPHEN 650 MG SUPP RC PRN (12:52)
--- NOTE | 2019-03-01 12:56 | NUR ---
Acetaminophen supp administered for fever 102.3F. Cooling measures in place: tepid sponge bath given, thick blankets removed, room temp kept cool. Pt awake, nonverbal, responsive to verbal & tactile stimuli, no SOB, no cough. Left hand IV intact with ongoing Vancomycin.
--- NOTE | 2019-03-01 13:24 | NUR ---
ASLEEP, NO DISCOMFORT NOTED AT THIS TIME. NO SIGNIFICANT CHANGE IN CONDITION.
--- NOTE | 2019-03-01 13:34 | NUR ---
Received call back from Sagrario (conservator). Per Sagrario, will discuss PICC insertion with mgr & will call back for consent.
[2019-03-01 16:00] VITALS: BP 112/73
[2019-03-01] MEDS ORDERED: BISACODYL 10 MG SUPP RC PRN (16:05)
--- NOTE | 2019-03-01 16:10 | NUR ---
Received call from Emelina from [facility] to f/u on PICC insertion consent. Call forwarded to Dr Echols per request to confirm procedure.
[2019-03-01] MEDS ORDERED: SODIUM PHOSPHATE 118 ML ENEM RC SCH (16:30)
[2019-03-01] MEDS: MUPIROCIN CA NASAL 2% 1GM TUBE NS SCH (18:07)
[2019-03-01] MEDS: CHLORHEXADINE GLUC 2% CLOTH TP SCH (18:07)
[2019-03-01] MEDS: RIVAROXABAN 15 MG TAB PO SCH (18:09)
--- NOTE | 2019-03-01 19:35 | NUR ---
PT ENDORSED TO CLAY PIGEON LOADER IN STABLE CONDITION
--- NOTE | 2019-03-01 19:35 | NUR ---
RECEIVED PATIENT REPORT AT BEDSIDE. PATIENT ASLEEP AT THIS TIME. NO S/S OF DISTRESS. BED LOWERED WITH CALL LIGHT WITHIN REACH. WILL CONTINUE TO MONITOR
[2019-03-01 20:14] VITALS: BP 120/72
--- NOTE | 2019-03-01 21:53 | NUR ---
SCHEDULED MEDS ADMINISTERED WITH APPLESAUCE. PT TOLERATED WELL
--- NOTE | 2019-03-01 22:30 | NUR ---
PATIENT HAD A LARGE BM. STOOL LOOSE AND LARGE IN AMOUNT. PATIENT CLEANED AND REPOSITIONED FOR COMFORT
--- NOTE | 2019-03-02 01:00 | NUR ---
MADE DR RODRIGUEZ AWARE OF PATIENT'S MAGNESIUM LEVEL. NO NEW ORDERS AT THIS TIME
[2019-03-02] MEDS: NACL 0.45% 1,000 ML IV SCH ×4 (01:24→21:47)
[2019-03-02] MEDS: GAUZE TP SCH ×2 (01:26→13:11)
[2019-03-02] MEDS: HYDRAGUARD CREAM TP SCH ×2 (01:26→13:11)
[2019-03-02 01:27] VITALS: BP 96/54
[2019-03-02 04:00] VITALS: BP 93/67
[2019-03-02] MEDS: LEVOTHYROXINE 0.075 MG TAB PO SCH (06:19)
[2019-03-02 06:58] LABS: HEMATOCRIT 24.4 % (36-52); MEAN CORPUSCULAR HEMOGLOBIN 29 pg (27-31); MEAN CORPUSCULAR HGB CONC 33 g/dL (33-37); MEAN CORPUSCULAR VOLUME 89.9 fL (80-94); PLATELET COUNT (AUTO) 165 K/uL (140-450); RED BLOOD CELL COUNT(AUTO) 2.71 MIL/uL (4.20-6.10); RED CELL DISTRIBUTION WIDTH 14.5 % (11.6-13.7); WHITE BLOOD COUNT (AUTO) 17.7 K/uL (4.8-10.8)
--- NOTE | 2019-03-02 07:20 | NUR ---
PT REPORT GIVEN AT BEDSIDE. PATIENT ENDORSED IN STABLE CONDITION
--- NOTE | 2019-03-02 07:21 | NUR ---
Received report from pm nurse Jonathon. Pt asleep in bed, respirations even & nonlabored, FLACC 0. Left hand IV intact with ongoing 1/2 NS @ 100ml/hr. Call light within reach.
[2019-03-02 07:38] LABS: LYMPHOCYTES % (MANUAL) 7 % (20-46)
[2019-03-02 07:39] LABS: MONOCYTES % (MANUAL) 10 % (5-12)
[2019-03-02 07:40] LABS: MAGNESIUM 1.5 mg/dL (1.8-2.4); PHOSPHORUS 2.9 mg/dL (2.5-4.9)
[2019-03-02 08:00] VITALS: BP 106/64
[2019-03-02 08:04] LABS: CARBON DIOXIDE 26.5 mmol/L (21-32); CREATININE 0.9 mg/dL (0.7-1.3); POTASSIUM 3.5 mmol/L (3.5-5.1)
[2019-03-02] MEDS: DOCUSATE SODIUM 100 MG GELCAP PO SCH ×2 (09:00→21:51)
--- NOTE | 2019-03-02 09:00 | NUR ---
Pt with dysphagia, needs meds crushed. Dr Echols notified. Per physician, will review meds.
[2019-03-02] MEDS: CARVEDILOL 3.125 MG TAB PO SCH ×2 (09:05→21:51)
[2019-03-02] MEDS: FERROUS SULFATE 325 MG TABEC PO SCH ×2 (09:06→18:04)
[2019-03-02] MEDS: AMIODARONE 200 MG TAB PO SCH (09:06)
[2019-03-02] MEDS: FAMOTIDINE 20 MG TAB PO SCH (09:06)
[2019-03-02] MEDS: MULTIVITAMIN 1 TAB PO SCH (09:06)
[2019-03-02] MEDS: Z-GUARD PASTE TP SCH ×2 (09:06→17:00)
--- NOTE | 2019-03-02 09:30 | NUR ---
Left voicemail for Sagrario (conservator) to f/u on PICC insertion consent.
[2019-03-02] MEDS ORDERED: DIVALPROEX SPRINKLES 125 MG CAPDR PO SCH (10:45)
--- NOTE | 2019-03-02 11:15 | NUR ---
Received vancomycin trough result. Franco pharmacist notified & confirmed ok to give current dose of Vancomycin 750mg.
[2019-03-02] MEDS: VANCOMYCIN 750 MG in DEXTROSE 5% 250 ML IV SCH ×2 (11:17→21:49)
[2019-03-02 12:00] VITALS: BP 97/61
--- NOTE | 2019-03-02 15:52 | NUR ---
03/02/19 RD FOLLOW UP COMPLETED PLEASE REFER TO NUTRITION ASSESSMENT UNDER CARE ACTIVITY FOR ESTIMATED NUTRITIONAL NEEDS. 1. CONTINUE PUREE DIET MEDICALLY APPROPRIATE 2. RECOMMEND ENSURE BID 3. F/U 2-3 DAYS; HIGH RISK BO DUNCAN RD
[2019-03-02 16:00] VITALS: BP 110/65
--- NOTE | 2019-03-02 16:30 | NUR ---
SHOPPING INVESTIGATOR report pt has had x3 loose brown stool since beginning of shift. Pt with BM at this time, soft brown stool, normal odor. Pt received enema on 03/01/19 d/t mod amt of stool in colon from abd xr. Pericare provided. Will cont to monitor bowel movement. Pt in no distress, FLACC 0. Right hand IV intact with ongoing 1/2 NS@ 100ml/h. Call light within reach.
[2019-03-02] MEDS: CHLORHEXADINE GLUC 2% CLOTH TP SCH (18:04)
[2019-03-02] MEDS: MUPIROCIN CA NASAL 2% 1GM TUBE NS SCH (18:04)
[2019-03-02] MEDS: RIVAROXABAN 15 MG TAB PO SCH (18:04)
--- NOTE | 2019-03-02 19:15 | NUR ---
Report given to pm nurse Roxanna. Pt resting in bed, no signs of distress.
--- NOTE | 2019-03-02 19:25 | NUR ---
REPORT RECIEVED FROM DAY NURSE. AOX1 NON VERBAL. IV PATENT ON LH.. EKG SR. SAFETY MEASURES IN PLACE. CALL LIGHT WITHIN REACH
[2019-03-02 20:00] VITALS: BP 119/70
[2019-03-02] MEDS: DIVALPROEX SPRINKLES 125 MG CAPDR PO SCH (21:50)
--- NOTE | 2019-03-02 22:00 | NUR ---
PT RESTING, PN TELE SR , REPOSITIONED Q2H IV ON RT HAND INFUSING WELL, NOT DISTRESS NOTED
[2019-03-03] VITALS: BP 101/57
--- NOTE | 2019-03-03 | NUR ---
REPOSITION PT Q2H. NO DISTRESS NOTED. V/S WNL. SAFETY MEASURES IN PLACE. CALL LIGHT WITHIN REACH.
[2019-03-03] MEDS: HYDRAGUARD CREAM TP SCH ×2 (01:00→13:06)
[2019-03-03] MEDS: GAUZE TP SCH ×2 (01:00→13:06)
--- NOTE | 2019-03-03 02:00 | NUR ---
PT RESTING WITH NO DISTRESS IV IN LHAND INFUSING WITH NO COMPLICATIONS. CALL LIGHT WITHIN REACH.
[2019-03-03 04:00] VITALS: BP 99/52
[2019-03-03] MEDS: HYDROcodone/APAP 5/325 MG 1 TAB TAB PO PRN (05:11)
--- NOTE | 2019-03-03 06:30 | NUR ---
ENDORSED PT CARE TO DAY NURSE.PT STABLE. SR TELEMETRY.
[2019-03-03] MEDS: LEVOTHYROXINE 0.075 MG TAB PO SCH (06:35)
[2019-03-03 06:49] LABS: HEMATOCRIT 24.4 % (36-52); HEMOGLOBIN 8.1 g/dL (12.0-18.0); MEAN CORPUSCULAR HEMOGLOBIN 30 pg (27-31); MEAN CORPUSCULAR HGB CONC 33 g/dL (33-37); MEAN CORPUSCULAR VOLUME 89.5 fL (80-94); PLATELET COUNT (AUTO) 192 K/uL (140-450); RED BLOOD CELL COUNT(AUTO) 2.72 MIL/uL (4.20-6.10); RED CELL DISTRIBUTION WIDTH 14.3 % (11.6-13.7); WHITE BLOOD COUNT (AUTO) 20.8 K/uL (4.8-10.8)
[2019-03-03 07:25] LABS: LYMPHOCYTES % (MANUAL) 6 % (20-46); MONOCYTES % (MANUAL) 6 % (5-12)
[2019-03-03 07:37] LABS: CARBON DIOXIDE 23.9 mmol/L (21-32); CREATININE 0.9 mg/dL (0.7-1.3)
--- NOTE | 2019-03-03 07:41 | NUR ---
Received report from police shift commander nurse. Pt in bed. No signs of distress. Call light in reach.
[2019-03-03 07:49] LABS: MAGNESIUM 1.4 mg/dL (1.8-2.4); PHOSPHORUS 2.5 mg/dL (2.5-4.9)
[2019-03-03 08:00] VITALS: BP 93/53
[2019-03-03 08:19] LABS: POTASSIUM 2.9 mmol/L (3.5-5.1)
[2019-03-03] MEDS: AMIODARONE 200 MG TAB PO SCH (08:19)
[2019-03-03] MEDS: DOCUSATE SODIUM 100 MG GELCAP PO SCH ×2 (08:19→22:19)
[2019-03-03] MEDS: FERROUS SULFATE 325 MG TABEC PO SCH ×2 (08:20→17:55)
[2019-03-03] MEDS: FAMOTIDINE 20 MG TAB PO SCH (08:20)
[2019-03-03] MEDS: MULTIVITAMIN 1 TAB PO SCH (08:20)
[2019-03-03] MEDS: DIVALPROEX SPRINKLES 125 MG CAPDR PO SCH ×2 (08:29→22:19)
[2019-03-03] MEDS: CARVEDILOL 3.125 MG TAB PO SCH ×2 (08:29→21:00)
[2019-03-03] MEDS: Z-GUARD PASTE TP SCH ×2 (08:30→17:59)
[2019-03-03] MEDS ORDERED: MAG SULF 2000 MG/WATER PREMIX 50 ML IV SCH (09:00)
--- NOTE | 2019-03-03 10:00 | NUR ---
Pt resting in bed. No signs of distress. No C/O pain. Call light in reach.
[2019-03-03] MEDS: VANCOMYCIN 750 MG in DEXTROSE 5% 250 ML IV SCH ×2 (10:38→22:19)
[2019-03-03] MEDS ORDERED: POTASSIUM CHLORIDE 40 MEQ, LIDOCAINE MPF 1% 25 MG in NACL 0.9% 250 ML IV SCH (11:00)
--- NOTE | 2019-03-03 11:36 | NUR ---
SPOKE TO DR. ALVAREZ IN REGARDS TO ORLY. EXPLAINED THE DIFFICULTIES OF DOING THE ORLY DUE TO THE PATIENTS MENTAL STATUS. RECOMMENDED TO BE ASSESSED BY THE WOOD DRILLING MACHINE OPERATOR AND SEE IF ORLY IS A POSSIBILITY.
[2019-03-03 12:00] VITALS: BP 104/51
--- NOTE | 2019-03-03 12:00 | NUR ---
Pt resting in bed. No signs of distress. No C/O pain. Call light in reach.
[2019-03-03] MEDS: NACL 0.45% 1,000 ML IV SCH ×2 (12:17→22:26)
[2019-03-03 13:13] LABS: HEMATOCRIT 24.3 % (36-52); HEMOGLOBIN 7.8 g/dL (12.0-18.0); MEAN CORPUSCULAR HEMOGLOBIN 29 pg (27-31); MEAN CORPUSCULAR HGB CONC 32 g/dL (33-37); MEAN CORPUSCULAR VOLUME 90.1 fL (80-94); PLATELET COUNT (AUTO) 209 K/uL (140-450); RED CELL DISTRIBUTION WIDTH 14.7 % (11.6-13.7); WHITE BLOOD COUNT (AUTO) 20.8 K/uL (4.8-10.8)
--- NOTE | 2019-03-03 14:00 | NUR ---
Pt resting in bed. No signs of distress. No C/O pain. Call light in reach.
[2019-03-03 14:09] LABS: LYMPHOCYTES % (MANUAL) 7 % (20-46); MONOCYTES % (MANUAL) 5 % (5-12)
[2019-03-03 15:01] LABS: ALBUMIN 1.2 g/dL (3.4-5.0); ANION GAP 13.5 (8-16); CREATININE 0.9 mg/dL (0.7-1.3); MAGNESIUM 2.2 mg/dL (1.8-2.4); POTASSIUM 3.5 mmol/L (3.5-5.1); TOTAL BILIRUBIN 0.3 mg/dL (0.0-1.0)
[2019-03-03 16:00] VITALS: BP 95/32
--- NOTE | 2019-03-03 16:30 | NUR ---
Received fax from [facility] for PICC insertion consent. Spoke to Robert (PICC nurse) re: order. ETA in 1-2hr.
[2019-03-03] MEDS: ACETAMINOPHEN 650 MG SUPP RC PRN (17:58)
--- NOTE | 2019-03-03 18:00 | NUR ---
Pt resting in bed. No signs of distress. Call light in reach.
[2019-03-03] MEDS: RIVAROXABAN 15 MG TAB PO SCH (18:01)
--- NOTE | 2019-03-03 19:25 | NUR ---
Shift report given to shift mechanic nurse.
--- NOTE | 2019-03-03 19:30 | NUR ---
RECEIVED FROM AM RN IN BED AWAKE. NONE VERBAL. TOTAL CARE. NEEDS WILL BE ANTICIPATED AND WILL BE MET. TELEMETRY MONITORING. FOR PICC LINE PLACEMENT TONIGHT SCHEDULED. TOTAL CARE. BLAIR CATHETER IN PLACE DRAINING WELL WITH YELLOW URINE. PRESSURE AREAS WITH PILLOW SUPPORT.
[2019-03-03 20:00] VITALS: BP 94/56
--- NOTE | 2019-03-03 23:51 | NUR ---
PICC LINE INSERTED BY PICC LINE RN. ULTRASOUND GUIDED AND XRAY RESULTS PER PICC LINE RN IN PLACE. NEEDS ANTICIPATED AND ISOLATION PRECAUTION OBSERVED. ON TELEMETRY MONITORING.
[2019-03-04] VITALS: BP 106/58
[2019-03-04] MEDS: HYDRAGUARD CREAM TP SCH ×2 (01:03→14:07)
[2019-03-04] MEDS: GAUZE TP SCH ×2 (01:03→14:07)
--- NOTE | 2019-03-04 01:46 | NUR ---
STILL AWAKE AT THIS TIME. NEEDS ANTICIPATED AND MET. TOTAL CARE. TURNED Q 2H. PILLOW SUPPORT TO PRESSURE AREAS AND HEEL RISERS IN PLACE.
--- NOTE | 2019-03-04 03:00 | NUR ---
NEEDS WILL BE ANTICIPATED AND WILL BE MET. TURNED BY CNAS Q 2H. PILLOW SUPPORT IN PLACE AND HEEL RISERS IN PLACE BILATERALLY.
[2019-03-04 04:33] VITALS: BP 100/63
[2019-03-04] MEDS: LEVOTHYROXINE 0.075 MG TAB PO SCH (06:14)
[2019-03-04 06:56] LABS: ANION GAP 11.4 (8-16); CARBON DIOXIDE 26.2 mmol/L (21-32); CREATININE 0.9 mg/dL (0.7-1.3); POTASSIUM 3.6 mmol/L (3.5-5.1)
[2019-03-04 07:01] LABS: BASOPHILS # (AUTO) 0.1 K/uL (0.00-0.22); BASOPHILS % (AUTO) 0.7 % (0.0-2.0); EOSINOPHILS # (AUTO) 0.1 K/uL (0-0.4); EOSINOPHILS % (AUTO) 0.3 % (0.0-4.0); HEMATOCRIT 21.9 % (36-52); HEMOGLOBIN 7.1 g/dL (12.0-18.0); LYMPHOCYTES % (AUTO) 5.2 % (20.5-51.1); MEAN CORPUSCULAR HEMOGLOBIN 29 pg (27-31); MEAN CORPUSCULAR HGB CONC 33 g/dL (33-37); MEAN CORPUSCULAR VOLUME 89.8 fL (80-94); MONOCYTES # (AUTO) 0.9 K/uL (0.8-1.0); MONOCYTES % (AUTO) 4.5 % (1.7-9.3); NEUTROPHILS # (AUTO) 17.4 K/uL (1.8-7.7); NEUTROPHILS % (AUTO) 89.3 % (42.2-75.2); PLATELET COUNT (AUTO) 225 K/uL (140-450); RED BLOOD CELL COUNT(AUTO) 2.44 MIL/uL (4.20-6.10); RED CELL DISTRIBUTION WIDTH 14.5 % (11.6-13.7); WHITE BLOOD COUNT (AUTO) 19.5 K/uL (4.8-10.8)
--- NOTE | 2019-03-04 07:10 | NUR ---
WILL ENDORSE TO AM RN FOR CONTINUITY OF CARE. NO RESTLESSNESS. NO SOB. PICC LINE IN PLACE. FLUSHED 2 PORTS WITH NS.
[2019-03-04 07:11] LABS: MAGNESIUM 1.8 mg/dL (1.8-2.4); PHOSPHORUS 2.9 mg/dL (2.5-4.9)
--- NOTE | 2019-03-04 07:48 | NUR ---
RECEIVED PT FROM FISH FARM LABORER FOR CONTINUITY OF CARE. PT IN STABLE CONDITION, CALL LIGHT WITHIN REACH.
[2019-03-04 08:15] VITALS: BP 100/57
--- NOTE | 2019-03-04 09:24 | NUR ---
PT TAKEN TO ORLY PROCEDURE. WILL MEDICATE WITH MORNING MEDS WHEN RETURNS. PT IN STABLE CONDITION AT THIS TIME.
[2019-03-04] MEDS ORDERED: PROPOFOL 200 MG/20 ML VIAL IV ONE (09:51)
--- NOTE | 2019-03-04 11:17 | NUR ---
PT RETURNED FOR ORLY PROCEDURE. PT IN STABLE CONDITION. VS STABLE AT BP:102/66, HR:98, TEMP:98.2, RESP:16, PAIN:0. WILL CONTINUE TO ROUND FREQUENTLY ON TP. AND CHECK VS PER POST-OP PROTOCOL.
[2019-03-04] MEDS ORDERED: FERROUS SULFATE 300 MG/5 ML UDC PO SCH (11:31)
[2019-03-04] MEDS: NACL 0.45% 1,000 ML IV SCH ×2 (11:44→18:17)
[2019-03-04] MEDS: AMIODARONE 200 MG TAB PO SCH (11:45)
[2019-03-04] MEDS: MULTIVITAMIN 1 TAB PO SCH (11:45)
[2019-03-04] MEDS: CARVEDILOL 3.125 MG TAB PO SCH ×2 (11:45→21:00)
[2019-03-04] MEDS: FAMOTIDINE 20 MG TAB PO SCH (11:46)
[2019-03-04] MEDS: DIVALPROEX SPRINKLES 125 MG CAPDR PO SCH ×2 (11:46→22:31)
[2019-03-04] MEDS: Z-GUARD PASTE TP SCH ×2 (11:48→17:03)
[2019-03-04] MEDS: VANCOMYCIN 750 MG in DEXTROSE 5% 250 ML IV SCH ×2 (11:48→22:00)
[2019-03-04 12:00] VITALS: BP 102/66
[2019-03-04] MEDS ORDERED: VANC750P14 IV (13:34)
--- NOTE | 2019-03-04 13:47 | NUR ---
PT RESTING IN BED. ALL NEEDS MET. WILL CONTINUE TO ROUND FREQUENTLY ON PT. BED IN LOW POSITION.
[2019-03-04] MEDS ORDERED: BUPIVACAINE-MPF 0.5% 30 ML VIAL INJ ONE (15:02)
--- NOTE | 2019-03-04 15:03 | NUR ---
ELTON faxed clinicals to [facility]. ELTON spoke to Shayan in Admissions. Shayan stated that patient would be accepted to Room 411 Bed A and accepting physician is Dr. Thompson. Shayan arranged for transportation at 6:30PM. ELTON/PONCHO will follow up as needed.
[2019-03-04 16:00] VITALS: BP 98/57
[2019-03-04] MEDS: RIVAROXABAN 15 MG TAB PO SCH (18:19)
--- NOTE | 2019-03-04 19:30 | NUR ---
RECEIVED ENDORSEMENT FORM AM SERGO POWER RN AT [facility] FOR CONTINUITY OF CARE, PT IN STABLE CONDITION.
[2019-03-04 20:00] VITALS: BP 108/63
--- NOTE | 2019-03-04 20:30 | NUR ---
ENDORSED PT TO SENIOR ADVOCATE FOR CONTINUITY OF CARE. PT IN STABLE CONDITION AT THIS TIME
--- NOTE | 2019-03-04 20:30 | NUR ---
PT IN BED ALL FALLS PRECAUTIONS IN PLACE. PT HAS 24G IV SITE ON LEFT HAND, IV SITE REMOVED DUE TO BEING B/P /R OVER 3 DAYS OLD, PT ALSO HAS PICC ON RIGHT UPPER ARM RUNNING NS AT 100MLS/HR. PT HAS BLAIR CATH, WITH 500MLS OF LIGHT GAETANO URINE. PT HAS NO S/S OF PAIN OR DISTRESS NOTED. PT GIVEN DUE MEDS OF DEPAKOTE SPRINKLES AND COLACE, COREG HELD DUE TO LOW BLOOD PRESSURE. V/S FOLLOWS T97.6 P 92 R 18 B/P 108/63 02 97% ON ROOM AIR.
[2019-03-04] MEDS ORDERED: DOCUSATE 100 MG/10 ML UDC PO SCH (21:00)
--- NOTE | 2019-03-04 23:00 | NUR ---
PT BLAIR CATHETER REMOVED PER D/C ORDER. PT WAS TURNED , CHANGED AND REPOSITIONED. ARM BAND CUT OFF, AND TRANSPORT COMPANY HERE TO TRANSPORT PT TO [facility]. PT TRANSFERRED FROM BED TO [facility], NO S/S OF PAIN OR DISTRESS NOTED.
== END 2019-03-04 22:45 | disposition home or self-care (01) | DRG 871 ==
LOC: MED 10:49 → MTU 12:40
PROVIDERS: ADMIT General Practice; ATTEND General Practice
DX: A41.02 Sepsis due to Methicillin resistant Staphylococcus aureus (principal); N17.0 Acute kidney failure with tubular necrosis; R65.21 Severe sepsis with septic shock; J18.9 Pneumonia, unspecified organism; E87.0 Hyperosmolality and hypernatremia; N12 Tubulo-interstitial nephritis, not specified as acute or chronic; F20.9 Schizophrenia, unspecified; E03.9 Hypothyroidism, unspecified; G40.909 Epilepsy, unspecified, not intractable, without status epilepticus; F32.9 Major depressive disorder, single episode, unspecified; E86.0 Dehydration; I10 Essential (primary) hypertension; E87.6 Hypokalemia; E83.41 Hypermagnesemia; R13.10 Dysphagia, unspecified; E78.5 Hyperlipidemia, unspecified; I48.91 Unspecified atrial fibrillation; G80.9 Cerebral palsy, unspecified; E83.39 Other disorders of phosphorus metabolism; Z88.8 Allergy status to other drugs, medicaments and biological substances; Z79.899 Other long term (current) drug therapy; Z74.01 Bed confinement status; E86.1 Hypovolemia
CPT/HCPCS: 36415; 71045; 74018; 80048; 80053; 80202; 80305; 81003; 82140; 82272; 82550; 82607; 82728; 82746; 82948; 83036; 83540; 83605; 83690; 83735; 83880; 84100; 84443; 84484; 85025; 85045; 85610; 85730; 87040; 87070; 87081; 87086; 87186; 92610; 93005; 93308; 93313; 93970; 96360; 96361; 99285; C1751; C1758; J0456; J0696; J2001; J2270; J2704; J2916; J3370; J3475; J3480; J3490; J7030; J7060; Q0092

== ENCOUNTER 2019-03-14 12:41 | Inpatient (IN) | payer OTHER ==
[~2019-03-14] VITALS: Ht 157.5 cm; Wt 58.5 kg
[~2019-03-14 12:41] MED LIST: ACET-2619 PO; ACET325C8 PO; AMIO200T5 PO; BISA-213 RC; CARV3.122 PO; DIVA500T1 PO; DOCU-299 PO; FAMO-90 PO; FERR325E14 PO; FLEPED RC; MAGN400S60 PO; MELO7.5T11 PO; MULT-153 PO; ONDA4TAB PO; RIVA20TA PO; SIMV10TA1 PO; SYN.075 PO; VANC750P14 IV
--- NOTE | 2019-03-14 12:41 | NUR ---
PATIENT BIB EMS TO BED 10.
--- NOTE | 2019-03-14 12:44 | NUR ---
DR. JUNE AT BEDSIDE EVALUATING PATIENT.
--- NOTE | 2019-03-14 12:45 | NUR ---
[facility] FROM [facility], LOC[facility]IN [facility] FOR ABNORMAL LABS, HEMOGLOBIN 6.7 PICC LINE TO PTS R ARM, DOUBLE LUMEN. ONLY RED LUMEN FLUSHING AT THIS TIME NON-VERBAL, BEDBOUND PMH- RENAL FAILURE, CEREBAL PALSY WITH INTELLECTUAL DISABILITY, HTN, SEIZURE, HLD, AFIB Addendum: 03/14/19 at 1437 by [email or web address] 6.4 HEMOGLOBIN
[2019-03-14 12:48] VITALS: BP 110/87
--- NOTE | 2019-03-14 13:12 | NUR ---
LAB AT BEDSIDE
[2019-03-14 13:38] LABS: BASOPHILS # (AUTO) 0.1 K/uL (0.00-0.22); BASOPHILS % (AUTO) 0.6 % (0.0-2.0); EOSINOPHILS # (AUTO) 0.2 K/uL (0-0.4); EOSINOPHILS % (AUTO) 1.1 % (0.0-4.0); LYMPHOCYTES # (AUTO) 1.4 K/uL (2.0-11.5); LYMPHOCYTES % (AUTO) 10.2 % (20.5-51.1); MEAN CORPUSCULAR HEMOGLOBIN 29 pg (27-31); MEAN CORPUSCULAR HGB CONC 32 g/dL (33-37); MEAN CORPUSCULAR VOLUME 90.1 fL (80-94); MONOCYTES # (AUTO) 1.7 K/uL (0.8-1.0); MONOCYTES % (AUTO) 11.9 % (1.7-9.3); NEUTROPHILS # (AUTO) 10.7 K/uL (1.8-7.7); NEUTROPHILS % (AUTO) 76.2 % (42.2-75.2); PLATELET COUNT (AUTO) 411 K/uL (140-450); RED BLOOD CELL COUNT(AUTO) 2.33 MIL/uL (4.20-6.10)
[2019-03-14 13:51] LABS: PROTHROMBIN TIME 11.5 secs (10.8-13.4)
[2019-03-14 13:53] LABS: HEMOGLOBIN 6.7 g/dL (12.0-18.0)
[2019-03-14] MEDS ORDERED: NACL 0.9% 1,000 ML IV ONE (14:00)
[2019-03-14 14:01] LABS: ALBUMIN 1.6 g/dL (3.4-5.0); ANION GAP 9.2 (8-16); CARBON DIOXIDE 28.5 mmol/L (21-32); CREATININE 0.9 mg/dL (0.7-1.3); POTASSIUM 4.7 mmol/L (3.5-5.1); TOTAL BILIRUBIN 0.2 mg/dL (0.0-1.0)
--- NOTE | 2019-03-14 14:19 | NUR ---
# 14 FR Urinary catheter inserted utilizing sterile technique. Immediate return of 100 ml YELLOW urine noted. Urine sample collected and sent to lab. Pt tolerated procedure WELL.
--- NOTE | 2019-03-14 14:25 | NUR ---
LAB AND RADIOLOGY AT BEDSIDE.
[2019-03-14 14:43] LABS: APPEARANCE,URINE HAZY (CLEAR); BILIRUBIN,URINE NEGATIVE (NEGATIVE); BLOOD, URINE NEGATIVE (NEGATIVE); COLOR,URINE YELLOW (YELLOW); LEUKOCYTE ESTERASE ,URINE NEGATIVE (NEGATIVE); NITRITE, URINE NEGATIVE (NEGATIVE); PH,URINE 5.5 (5.0-9.0); UGLUCOSE NEGATIVE (NEGATIVE)
[2019-03-14 14:50] LABS: RBC,URINE 0 /HPF (0-5); WBC,URINE 0-5 /HPF (0-5)
[2019-03-14] MEDS ORDERED: PIPERACILLIN/TAZOBACTAM 3.375 GM in DEXTROSE 5% 50 ML IV ONE (14:50)
[2019-03-14] MEDS ORDERED: PIPERACILLIN/TAZOBACTAM 3.375 GM VIAL IV ONE (14:55)
[2019-03-14] MEDS ORDERED: HYDROcodone/APAP 7.5/325 MG 1 TAB PO PRN (15:10)
[2019-03-14] MEDS ORDERED: ACETAMINOPHEN 325 MG TAB PO PRN (15:10)
[2019-03-14] MEDS ORDERED: MORPHINE SULFATE 2 MG/ML SYR IVP PRN (15:10)
[2019-03-14] MEDS ORDERED: DOCUSATE SODIUM 100 MG GELCAP PO PRN (15:10)
[2019-03-14] MEDS ORDERED: ONDANSETRON 4 MG/2 ML VIAL IM/IVP PRN (15:10)
[2019-03-14] MEDS: DEXT 5% / NACL 0.45% 1,000 ML IV SCH (15:20)
[2019-03-14] MEDS ORDERED: VANCOMYCIN PER PHARMACY MC PRN (15:25)
--- NOTE | 2019-03-14 16:06 | NUR ---
Patient will be admitted to care of [facility]. Admited to TELE. Will go to room 118. Belongings list completed. Report to XOCHITL POWER.
[2019-03-14 16:49] LABS: FREE T4 (FREE THYROXINE) 1.49 ng/dL (0.76-1.46); MAGNESIUM 2.1 mg/dL (1.8-2.4); PHOSPHORUS 3.9 mg/dL (2.5-4.9); THYROID STIMULATING HORMONE 6.52 uIU/mL (0.34-3.74)
[2019-03-14 16:50] VITALS: BP 110/67
--- NOTE | 2019-03-14 16:50 | NUR ---
RECEIVED PT FROM NIGHT ED RN. PT IS AAOX1, HX OF INTELLECTUAL DISABILITY. PT HAS RED/PURPLE COLORED WOUND TO TOES ON THE RIGHT FOOT AND ANOTHER RED PURPLE COLORED CLOSED WOUND TO THE RIGHT FOOT. ALSO RED WOUND TO THE LEFT KNEE. PICTURES TAKEN BY ED. PT ON RA. CONTRACTURES NOTED TO RIGHT UPPER EXTREMITY AND BLE. PT INCONTINENT. NONVERBAL. ENVIRONMENTAL CHECK COMPLETED. WILL ROUND FREQUENTLY ON PT.
[2019-03-14] MEDS ORDERED: FUROSEMIDE 20 MG TAB PO PRN (17:00)
--- NOTE | 2019-03-14 18:40 | NUR ---
PT RESTING I NBED. NO SIGNS OF DISTRESS OR PAIN AT THIS TIME. WILL CONTINUE TO ROUND FREQUENTLY ON PT.
--- NOTE | 2019-03-14 19:32 | NUR ---
ENDORSED PT TO CARAMEL CANDY MAKER HELPER FOR CONTINUITY OF CARE. PT IN STABLE CONDITION AT THIS TIME.
--- NOTE | 2019-03-14 19:35 | NUR ---
RECEIVED ENDORSEMENT FORM TONO LEUNG DAYSHIFT NURSE AT BEDSIDE FOR CONTINUITY OF CARE, PT IN STABLE CONDITION.
[2019-03-14 20:00] VITALS: BP 111/69
[2019-03-14] MEDS: ACETAMINOPHEN 325 MG TAB PO SCH ×2 (20:00→22:19)
--- NOTE | 2019-03-14 20:00 | NUR ---
PT IN LOW BED SIDE RAILS UP X2 AOX1, NO S/S OF PAIN OR DISTRESS NOTED. PICC LINE INTACT AND FLUSHED PATENT. V/S FOLLOWS T 98.3 P 86 R 18 B/P 111/64 02 97% ON ROOM AIR.
[2019-03-14] MEDS: CARVEDILOL 3.125 MG TAB PO SCH (21:00)
--- NOTE | 2019-03-14 21:00 | NUR ---
PT TURNED , CHANGED AND REPOSITIONED IN BED.
--- NOTE | 2019-03-14 21:30 | NUR ---
PT GIVEN ORDERED AND SCHEDULED MED BENADRYL, TYLENOL. COLACE, DEPAKOTE ,FERROUS SULFATE AND ZOCOR WHOLE PILLS WITH PUDDING.
--- NOTE | 2019-03-14 21:48 | NUR ---
BLOOD TRANSFUSION STARTED , VERIFIED RIGHT PT , RIGHT UNIT, BY DAVID LEUNG AT BEDSIDE. PRE TANSFUSION V/S FOLLOWS T 98.5 P 93 R 18 B/P 142/ 02 98% ON ROOM AIR. Addendum: 03/15/19 at 0058 by Alta Ingram RN B/P IS 111/64 NOT 142
--- NOTE | 2019-03-14 22:00 | NUR ---
BLOOD TRANSFUSION IN PROGRESS NO ADVERSE REACTIONS NOTED V/S FOLLOWS : T 98.6 P 94 R 18 B/P 101/61 02 97% ON ROOM AIR.
[2019-03-14] MEDS: DOCUSATE SODIUM 100 MG GELCAP PO SCH (22:19)
[2019-03-14] MEDS: FERROUS SULFATE 325 MG TABEC PO SCH (22:20)
[2019-03-14] MEDS: DIVALPROEX 500 MG TABEC PO SCH (22:20)
[2019-03-14] MEDS: SIMVASTATIN 10 MG TAB PO SCH (22:21)
--- NOTE | 2019-03-14 22:30 | NUR ---
PT IN BED NO S/S OF PAIN OR DISTRESS NOTED. V/S FOLLOWS T 98.6 P 94 R 18 B/P 96/66 02 96% ON ROOM AIR. NO ADVERSE REACTIONS NOTED.
--- NOTE | 2019-03-14 23:00 | NUR ---
PT IN BED BLOOD TRANSFUSION IN PROGRESS V/S FOLLOWS T 98.5 P 97 R 18 B/P 104/50 02 97% ON ROOM AIR. NO ADVERSE EFFECTS OF MEDS NOTED.
[2019-03-15] VITALS: BP 101/55
--- NOTE | 2019-03-15 | NUR ---
PT TURNED AND REPOSITIONED IN BED, V/S FOLLOWS T 98.1 P 84 R 20 B/P 120/63 02 97% ON ROOM AIR. PT TURNED AND REPOSITIONED IN BED ALL FALLS,SEIZURES AND CONTACT PRECAUTIONS IN PLACE.
--- NOTE | 2019-03-15 | NUR ---
BLOOD TRANSFUSION IN PROGRESS NO ADVERSE EFFECTS OF MEDS NOTED V/S FOLLOWS T 97.6 P 99 R 18 B/P 101/55 02 97% ON ROOM AIR.
--- NOTE | 2019-03-15 00:20 | NUR ---
PT TURNED, CHANGED AND REPOSITIONED.
--- NOTE | 2019-03-15 00:45 | NUR ---
BLOOD TRANSFUSION COMPLETED NO S/S OF PAIN OR DISTRESS NOTED V/S FOLLOWS T 98.5 P 100 R 18 B/P 115/77 02 98% ON ROOM AIR. NO ADVERSE EFFECTS OF BLOOD TRANSFUSION NOTED.
--- NOTE | 2019-03-15 02:15 | NUR ---
2ND UNIT OF BLOOD HUNG PRETRANSFUSION V/S ARE T 97.1 P 80 R 18 B/P 93/64 02 95% ON ROOM AIR. WILL MONITOR V/S AND FOR ANY REACTION.
--- NOTE | 2019-03-15 02:30 | NUR ---
FIRST 15 MINUTES INTO THE TRANSFUSION V/S ARE T 97.0 P 73 R 18 B/P 103/70 02 100% ON ROOM AIR. NO ADVERSE REACTION NOTED.
--- NOTE | 2019-03-15 02:45 | NUR ---
BLOOD TRANSFUSION IN PROGRESS V/S FOLLOWS T 97.0 P 74 R 18 B/P 107/72 02 100% ON ROOM AIR. NO ADVERSE EFFECTS NOTED.
--- NOTE | 2019-03-15 03:00 | NUR ---
BLOOD TRANSFUSION IN PROGRESS V/S FOLLOWS T 97.2 P 75 R 18 B/P 108/69 02 100% ON ROOM AIR , NO ADVERSE REACTION NOTED.
--- NOTE | 2019-03-15 03:15 | NUR ---
BLOOD TRANSFUSION IN PROGRESS V/S FOLLOWS T 97.3 P 79 R 18 B/P 02 98% ON ROOM AIR.NO ADVERSE EFFECTS OF MEDS NOTED.
--- NOTE | 2019-03-15 03:45 | NUR ---
BLOOD TRANSFUSION CONTINUES NO ADVERSE EFFECTS NOTED V/S FOLLOWS T 97 P 77 R 18 B/P 110/65 02 97% ON ROOM AIR.
[2019-03-15 04:00] VITALS: BP 98/65
--- NOTE | 2019-03-15 04:45 | NUR ---
TRANSFUSION CONTINUES V/S FOLLOWS T 97.3 P 73 R 18 B/P 98/65 02 94 % ON ROOM AIR. NO ADVERSE EFFECTS OF MEDS NOTED.
--- NOTE | 2019-03-15 05:25 | NUR ---
BLOOD TRANSFUSION COMPLETED POST V/S FOLLOWS T 97.6 P 77 R 18 B/P 105/70 02 97% ON ROOM AIR. NO ADVERSE EFFECTS OF MEDS NOTED.
--- NOTE | 2019-03-15 06:00 | NUR ---
PT GIVEN DUE AM BY MOUTH. PT COMFORTABLE IN BED NO S/S OF PAIN OR DISTRESS NOTED. PT NOW ON CONTACT PRECAUTIONS FOR HX OF MRSA. ALL FALLS PRECAUTIONS IN PLACE.
[2019-03-15 06:07] LABS: T4 (THYROXINE) 11.3 ug/dL (4.5-12.0)
[2019-03-15] MEDS: LEVOTHYROXINE 0.075 MG TAB PO SCH (06:30)
[2019-03-15] MEDS: PANTOPRAZOLE 40 MG TABEC PO SCH (06:30)
[2019-03-15] MEDS: DEXT 5% / NACL 0.45% 1,000 ML IV SCH (06:30)
--- NOTE | 2019-03-15 07:18 | NUR ---
RECEIVED BEDSIDE REPORT FROM DIRECTOR DIVERSITY NURSE FOR CONTINUITY OF CARE. PATIENT IS RESTING ON BED AT THIS TIME. AROUSABLE TO VOICE. EVEN AND UNLABORED CHEST RISES NOTED ON RA. FLACC 0. NO SIGNS OF DISTRESS NOTED. PICC ON R RAIN NOTED, CLEAN AND INTACT, INFUSING PER MD ORDER. BRUISES ON FOOT NOTED. PATIENT IS INCONTINENT AND BEDREST. TELE MONITOR ATTACHED. SAFETY MEASURES IN PLACE. SEIZURE PRECAUTION IN PLACE AND BOTH RAILS PADDED. FALL RISK PRECAUTION IN PLACE AND BED ALARM ACTIVATED. CONTACT PRECAUTION IN PLACE AND SIGN POSTED. NPO ENFORCED AND SIGN POSTED. BED IN LOW POSITION AND CALL LIGHT WITHIN REACH.
[2019-03-15 08:00] VITALS: BP 115/69
[2019-03-15 08:07] LABS: FOLIC ACID 11.5 ng/mL (>3.0)
--- NOTE | 2019-03-15 08:26 | NUR ---
PATIENT HAS BEEN SCREENED AND CATEGORIZED HIGH NUTRITION RISK. PATIENT WILL BE SEEN WITHIN 1-2 DAYS OF ADMISSION. 03/15/19-03/16/[address]
[2019-03-15 09:05] LABS: HEMATOCRIT 26.9 % (36-52); HEMOGLOBIN 8.7 g/dL (12.0-18.0); MEAN CORPUSCULAR HEMOGLOBIN 29 pg (27-31); MEAN CORPUSCULAR HGB CONC 33 g/dL (33-37); MEAN CORPUSCULAR VOLUME 88.4 fL (80-94); PLATELET COUNT (AUTO) 361 K/uL (140-450); RED BLOOD CELL COUNT(AUTO) 3.04 MIL/uL (4.20-6.10); RED CELL DISTRIBUTION WIDTH 14.6 % (11.6-13.7); WHITE BLOOD COUNT (AUTO) 11.7 K/uL (4.8-10.8)
[2019-03-15 09:15] LABS: ANION GAP 11.5 (8-16); CARBON DIOXIDE 26.5 mmol/L (21-32); CREATININE 0.9 mg/dL (0.7-1.3)
[2019-03-15] MEDS: DOCUSATE SODIUM 100 MG GELCAP PO SCH ×2 (09:46→23:09)
[2019-03-15] MEDS: LACTOBACILLUS RHAMNOSUS GG 1 EACH CAP PO SCH (09:46)
[2019-03-15] MEDS: DIVALPROEX 500 MG TABEC PO SCH ×2 (09:46→23:09)
[2019-03-15] MEDS: CARVEDILOL 3.125 MG TAB PO SCH ×2 (09:47→23:09)
[2019-03-15] MEDS: FAMOTIDINE 20 MG TAB PO SCH (09:47)
[2019-03-15] MEDS: AMIODARONE 200 MG TAB PO SCH (09:47)
[2019-03-15] MEDS: FERROUS SULFATE 325 MG TABEC PO SCH ×2 (09:47→23:09)
--- NOTE | 2019-03-15 09:47 | NUR ---
ADMINISTERED MEDS PER MD ORDER, CRUSHED MEDS AND MIXED WITH PUDDING, PATIENT TOLERATED WELL. MEDS EDUCATION PROVIDED, AND PATIENT UNABLE TO COMPREHEND AND REINFORCEMENT NEEDED. PATIENT IS RESTING ON BED AT THIS TIME. NO SIGNS OF DISTRESS NOTED. SAFETY MEASURES IN PLACE. BED IN LOW POSITION AND CALL LIGHT WITHIN REACH. TELE MONITOR ATTACHED AND BED ALARM ACTIVATED.
[2019-03-15 10:10] LABS: EOSINOPHILS % (MANUAL) 1 % (0-4); LYMPHOCYTES % (MANUAL) 10 % (20-46); MONOCYTES % (MANUAL) 9 % (5-12)
--- NOTE | 2019-03-15 11:13 | NUR ---
PATIENT AWAKE WITH BOTH EYE OPENS AND MUMBLING SOME WORDS INCOMPREHENSIBLE. FLACC 0. NO SIGNS OF DISTRESS NOTED. TELE MONITOR ATTACHED. SAFETY MEASURES IN PLACE. BED IN LOW POSITION AND CALL LIGHT WITHIN REACH. FALL RISK PROTOCOL IN PLACE AND BED ALARM ACTIVATED.
[2019-03-15 12:00] VITALS: BP 113/71
[2019-03-15] MEDS: NACL 0.9% 1,000 ML IV SCH (12:59)
[2019-03-15] MEDS ORDERED: BISACODYL 10 MG SUPP RC SCH (13:30)
--- NOTE | 2019-03-15 13:32 | NUR ---
03/15/19 RD INITIAL ASSESSMENT COMPLETED PLEASE REFER TO NUTRITION ASSESSMENT UNDER CARE ACTIVITY FOR ESTIMATED NUTRITIONAL NEEDS. 1. CONTINUE PUREE DIET TOLERATED 2. PROVIDE FEEDING ASSISTANCE IF NEEDED 3. RD TO FOLLOW-UP 2-3 DAYS, HIGH RISK BO [address]
--- NOTE | 2019-03-15 13:41 | NUR ---
WITH ASSIST FROM TELECOMMUNICATIONS OPERATOR, ADMINISTERED SUPPOSITORY, PATIENT TOLERATED WELL. MED EDUCATION PROVIDED TO PATIENT AND REINFORCEMENT NEEDED. PATIENT IS RESTING ON BED AT THIS TIME. FLACC 0. NO SIGNS OF DISTRESS NOTED. SAFETY MEASURES IN PLACE. BED IN LOW POSITION AND CALL LIGHT WITHIN REACH. FALL RISK PROTOCOL IN PLACE AND BED ALARM ACTIVATED.
[2019-03-15] MEDS ORDERED: VANCOMYCIN HCL 750 MG in DEXTROSE 5% 250 ML IV SCH (14:00)
--- NOTE | 2019-03-15 14:10 | NUR ---
ADMINISTERED MED VIA IVPB PER MD ORDER, PATIENT TOLERATED WELL. PATIENT AWAKE AND RESTING ON BED AT THIS TIME. FLACC 0. RESPIRATION EVEN AND UNLABORED ON RA. NO SIGNS OF DISTRESS NOTED. SAFETY MEASURES IN PLACE. BED IN LOW POSITION AND CALL LIGHT WITHIN REACH. FALL RISK PROTOCOL IN PLACE AND BED ALARM ACTIVATED.
--- NOTE | 2019-03-15 14:25 | NUR ---
PATIENT HAS ONE SMALL SOFT BM. COLLECTED STOOL SPECIMEN AND SENT TO LAB. WIRE DROPPER IS CLEANING AND CHANGING PATIENT. NO SIGNS OF DISTRESS NOTED. SAFETY MEASURES IN PLACE. TELE MONITOR ATTACHED.
--- NOTE | 2019-03-15 15:03 | NUR ---
CALLED [facility] AND WAS GIVEN ZAIRA LESTER (PT NEXT OF KIN/ PERSON TO NOTIFY/CONSERVATOR/ SURROGATE DECISION MAKER) DIRECT PHONE NUMBER . MS. LESTER IS AWARE PT WAS ADMITTED TO [facility] FOR DX: ANEMIA, HGB 6.7 AND WAS TRANSFUSED TWO UNITS OF BLOOD LAST NIGHT. HGB 8.7 THIS MORNING. DUE TO UNABLE TO CONTACT CONSERVATOR THE CONSENT TO BLOOD TRANSFUSION WAS SIGNED BY TWO PHYSICIAN SIGNATURES. CONSERVATOR IS AWARE AND WILL CONTACT ADMITTING WITH UPDATED CONTACT INFORMATION.
--- NOTE | 2019-03-15 15:17 | NUR ---
PATIENT AWAKE AND RESTING ON BED AT THIS TIME. FLACC 0. NO SIGNS OF DISTRESS NOTED. SAFETY MEASURES IN PLACE. BED IN LOW POSITION AND CALL LIGHT WITHIN REACH. FALL RISK PROTOCOL IN PLACE AND BED ALARM ACTIVATED.
[2019-03-15 16:00] VITALS: BP 127/70
--- NOTE | 2019-03-15 17:16 | NUR ---
PATIENT AWAKE AND RESTING ON BED AT THIS TIME. RESPIRATION EVEN AND UNLABORED ON RA. FLACC 0. NO SIGNS OF DISTRESS NOTED. SAFETY MEASURES IN PLACE. BED IN LOW POSITION AND CALL LIGHT WITHIN REACH. FALL RISK PROTOCOL IN PLACE AND BED ALARM ACTIVATED.
--- NOTE | 2019-03-15 19:14 | NUR ---
ENDORSED PATIENT AT BEDSIDE TO ISOLATION WASHER NURSE. PATIENT AWAKE AND RESTING ON BED. NO SIGNS OF DISTRESS NOTED. PATIENT IS IN STABLE CONDITION. TELE MONITOR ATTACHED. SAFETY MEASURES IN PLACE. FALL RISK PROTOCOL IN PLACE AND BED ALARM ACTIVATED.
--- NOTE | 2019-03-15 19:15 | NUR ---
RECEIVED REPORT FROM ALYSON RN DAYSHIFT NURSE AT BEDSIDE FOR CONTINUITY OF CARE, PT IN BED NO S/S OF PAIN OR DISTRESS NOTED. PT IN BED ALL FALLS, SEIZURE AND CONTACT PRECAUTIONS IN PLACE. PICC LINE IN TACT AND RUNNING NORMAL SALINE AT 80MLS/HR.
[2019-03-15 20:00] VITALS: BP 115/64
--- NOTE | 2019-03-15 20:00 | NUR ---
PT IN BED ALL FALLS, SEIZURES, AND CONTACT PRECAUTIONS IN PLACE. PICC LINE INTACT AND RUNNING N/S AT 80MLS/HR. V/S FOLLOWS T 97.9 P 99 R 18 B/115/64 02 96% ON ROOM AIR. PT TURNED, CLEANED AND REPOSITIONED.
--- NOTE | 2019-03-15 21:00 | NUR ---
PT GIVEN ORDERED PO MEDS OF COLACE, COREG, DEPAKOTE, FERROUS SULFATE AND ZOCOR ORDERED. NO S/S OF PAIN OR DISTRESS NOTED.
[2019-03-15] MEDS: SIMVASTATIN 10 MG TAB PO SCH (23:10)
[2019-03-16] VITALS: BP 120/63
[2019-03-16 04:00] VITALS: BP 120/63
--- NOTE | 2019-03-16 04:00 | NUR ---
PT IN BED AOX1 HE WAS TURNED AND REPOSITIONED V/S FOLLOWS T 98.1 P 84 R 18 B/P 120/63 02 975 ON ROOM AIR.
[2019-03-16] MEDS: NACL 0.9% 1,000 ML IV SCH ×3 (04:01→21:13)
[2019-03-16] MEDS: LEVOTHYROXINE 0.075 MG TAB PO SCH (05:46)
[2019-03-16] MEDS: PANTOPRAZOLE 40 MG TABEC PO SCH (05:46)
--- NOTE | 2019-03-16 06:00 | NUR ---
PT GIVEN ALL DUE MEDS PLUS NORCO FOR PAIN PT GRINDING TEETH WITH A FACIAL GRIMACE.
[2019-03-16 07:24] LABS: BASOPHILS # (AUTO) 0.1 K/uL (0.00-0.22); BASOPHILS % (AUTO) 0.7 % (0.0-2.0); EOSINOPHILS # (AUTO) 0.1 K/uL (0-0.4); EOSINOPHILS % (AUTO) 1.1 % (0.0-4.0); HEMATOCRIT 27.7 % (36-52); LYMPHOCYTES # (AUTO) 1.3 K/uL (2.0-11.5); LYMPHOCYTES % (AUTO) 11.1 % (20.5-51.1); MEAN CORPUSCULAR HEMOGLOBIN 29 pg (27-31); MEAN CORPUSCULAR HGB CONC 32 g/dL (33-37); MEAN CORPUSCULAR VOLUME 88.3 fL (80-94); MONOCYTES # (AUTO) 1.5 K/uL (0.8-1.0); MONOCYTES % (AUTO) 13.5 % (1.7-9.3); NEUTROPHILS # (AUTO) 8.3 K/uL (1.8-7.7); NEUTROPHILS % (AUTO) 73.6 % (42.2-75.2); PLATELET COUNT (AUTO) 374 K/uL (140-450); RED BLOOD CELL COUNT(AUTO) 3.14 MIL/uL (4.20-6.10); RED CELL DISTRIBUTION WIDTH 14.4 % (11.6-13.7); WHITE BLOOD COUNT (AUTO) 11.3 K/uL (4.8-10.8)
[2019-03-16 07:30] LABS: ANION GAP 13.8 (8-16); CARBON DIOXIDE 24.1 mmol/L (21-32); CREATININE 0.8 mg/dL (0.7-1.3); POTASSIUM 3.9 mmol/L (3.5-5.1)
[2019-03-16 07:38] LABS: MAGNESIUM 1.8 mg/dL (1.8-2.4); PHOSPHORUS 3.5 mg/dL (2.5-4.9)
--- NOTE | 2019-03-16 07:48 | NUR ---
RECEIVED REPORT FROM VENDING ATTENDANT RN FOR CONTINUITY OF CARE. PT IN BED NO S/S OF PAIN OR DISTRESS NOTED. PT IN BED ALL FALLS, SEIZURE AND CONTACT PRECAUTIONS IN PLACE. PICC LINE IN TACT AND RUNNING NORMAL SALINE AT 80MLS/HR. WOUNDS NOTED TO LOWER EXTREMITIES. WILL COMPLETE WOUND CONSULT. BED IN LOW POSITION, CALL LIGHT WITHIN REACH. WILL ROUND FREQUENTLY ON PT.
--- NOTE | 2019-03-16 07:48 | NUR ---
PT RESTING. MORNING MEDS ADMINISTERED AND TOLERATING WELL. WILL CONTINUE TO ROUND FREQUENTLY ON PT.
[2019-03-16 08:15] VITALS: BP 103/59
[2019-03-16] MEDS: CARVEDILOL 3.125 MG TAB PO SCH ×2 (09:00→21:08)
--- NOTE | 2019-03-16 09:47 | NUR ---
PT RESTING. MORNING MEDS ADMINISTERED AND TOLERATING WELL. WILL CONTINUE TO ROUND FREQUENTLY ON PT.
[2019-03-16] MEDS: FAMOTIDINE 20 MG TAB PO SCH (10:57)
[2019-03-16] MEDS: DIVALPROEX 500 MG TABEC PO SCH ×2 (10:57→21:08)
[2019-03-16] MEDS: LACTOBACILLUS RHAMNOSUS GG 1 EACH CAP PO SCH (10:57)
[2019-03-16] MEDS: AMIODARONE 200 MG TAB PO SCH (10:58)
[2019-03-16] MEDS: FERROUS SULFATE 325 MG TABEC PO SCH ×2 (10:58→21:08)
[2019-03-16] MEDS: DOCUSATE SODIUM 100 MG GELCAP PO SCH ×2 (10:58→21:07)
--- NOTE | 2019-03-16 11:24 | NUR ---
PT RESTING. WILL CONTINUE TO ROUND FREQUENTLY ON PT.
--- NOTE | 2019-03-16 13:18 | NUR ---
PT SLEEPING. ALL NEEDS MET.
--- NOTE | 2019-03-16 15:43 | NUR ---
PT SLEEPING. ALL NEEDS MET. WILL CONTINUE TO ROUND FREQUENTLY ON PT.
[2019-03-16 16:00] VITALS: BP 105/66
--- NOTE | 2019-03-16 18:19 | NUR ---
PT HAVING DINNER. RENEWABLE ENERGY ENGINEER FEEDING PT. PT TOLERATING WELL. WILL CONTINUE TO ROUND FREQUENTLY ON PT.
--- NOTE | 2019-03-16 20:14 | NUR ---
PT ENDORSED TO STEEL RULE DIE MAKER APPRENTICE BY CHARGE NURSE SERGIO. PT IN STABLE CONDITION AT THIS TIME.
--- NOTE | 2019-03-16 20:15 | NUR ---
Received report from AM shift RN for continuity of care. Patient in bed with no s/sx of pain nor discomfort. No distress noted. Safety ensured. PICC line intact and patent running with IVF. Bed in low position. Will continue to monitor.
[2019-03-16] MEDS: SIMVASTATIN 10 MG TAB PO SCH (21:08)
--- NOTE | 2019-03-16 22:10 | NUR ---
Patient asleep in bed. Visible chest rise and fall noted.
[2019-03-17] VITALS: BP 109/61
--- NOTE | 2019-03-17 00:05 | NUR ---
Patient sleeping in bed. Visible chest rise and fall noted.
--- NOTE | 2019-03-17 02:00 | NUR ---
Rounds done. Patient resting in bed, asleep. No distress noted.
--- NOTE | 2019-03-17 03:40 | NUR ---
Checks done. Patient asleep at this time. Visible chest rise and fall noted.
--- NOTE | 2019-03-17 05:35 | NUR ---
Rounds done. Patient asleep in bed. Visible chest rise and fall noted. No distress noted.
[2019-03-17] MEDS: PANTOPRAZOLE 40 MG TABEC PO SCH (05:42)
[2019-03-17] MEDS: LEVOTHYROXINE 0.075 MG TAB PO SCH (05:42)
--- NOTE | 2019-03-17 06:18 | NUR ---
Patient resting comfortably in bed. No distress noted. Will continue to monitor.
--- NOTE | 2019-03-17 06:45 | NUR ---
VITALS STABLE. DUE MEDICATIONS GIVEN. WILL ENDORSE TO AM SHIFT RN FOR CONTINUITY OF CARE.
[2019-03-17 06:54] LABS: BASOPHILS # (AUTO) 0.1 K/uL (0.00-0.22); BASOPHILS % (AUTO) 0.6 % (0.0-2.0); EOSINOPHILS # (AUTO) 0.1 K/uL (0-0.4); EOSINOPHILS % (AUTO) 1.1 % (0.0-4.0); HEMATOCRIT 24.8 % (36-52); HEMOGLOBIN 8.1 g/dL (12.0-18.0); LYMPHOCYTES # (AUTO) 1.6 K/uL (2.0-11.5); LYMPHOCYTES % (AUTO) 14.3 % (20.5-51.1); MEAN CORPUSCULAR HEMOGLOBIN 29 pg (27-31); MEAN CORPUSCULAR HGB CONC 33 g/dL (33-37); MEAN CORPUSCULAR VOLUME 88.8 fL (80-94); MONOCYTES # (AUTO) 1.7 K/uL (0.8-1.0); MONOCYTES % (AUTO) 15.3 % (1.7-9.3); NEUTROPHILS # (AUTO) 7.7 K/uL (1.8-7.7); NEUTROPHILS % (AUTO) 68.7 % (42.2-75.2); PLATELET COUNT (AUTO) 271 K/uL (140-450); RED CELL DISTRIBUTION WIDTH 14.1 % (11.6-13.7); WHITE BLOOD COUNT (AUTO) 11.2 K/uL (4.8-10.8)
[2019-03-17 07:16] LABS: ANION GAP 11.5 (8-16); CARBON DIOXIDE 25.2 mmol/L (21-32); CREATININE 0.7 mg/dL (0.7-1.3); POTASSIUM 3.7 mmol/L (3.5-5.1)
--- NOTE | 2019-03-17 07:25 | NUR ---
RECEIVED REPORT FROM NIGHT RN. PATIENT IS FULL CODE WITH ALLERGIES TO PROPANOLOL. PT HAS A PICC DOUBLE LUMEN TO RIGHT UA WITH NS INFUSING AT 80ML/HR. PATIENT IS BEDBOUND, FALL RISK. AAOX1/2, ON ROOM AIR. WILL CONTINUE WITH CURRENT PLAN OF CARE.
[2019-03-17 07:30] LABS: MAGNESIUM 1.7 mg/dL (1.8-2.4); PHOSPHORUS 3.3 mg/dL (2.5-4.9)
[2019-03-17 08:00] VITALS: BP 116/68
--- NOTE | 2019-03-17 09:00 | NUR ---
ADMINISTERED MORNING MEDICATION WHOLE AND MIXED WITH PUDDING. PATIENT TOLERATED WELL. NO COMPLAINTS.
[2019-03-17] MEDS ORDERED: MAGNESIUM OXIDE 400 MG TAB PO SCH (09:03)
[2019-03-17] MEDS: AMIODARONE 200 MG TAB PO SCH (09:11)
[2019-03-17] MEDS: DOCUSATE SODIUM 100 MG GELCAP PO SCH (09:12)
[2019-03-17] MEDS: FAMOTIDINE 20 MG TAB PO SCH (09:12)
[2019-03-17] MEDS: CARVEDILOL 3.125 MG TAB PO SCH (09:13)
[2019-03-17] MEDS: FERROUS SULFATE 325 MG TABEC PO SCH (09:13)
[2019-03-17] MEDS: DIVALPROEX 500 MG TABEC PO SCH (09:14)
[2019-03-17] MEDS: LACTOBACILLUS RHAMNOSUS GG 1 EACH CAP PO SCH (09:14)
--- NOTE | 2019-03-17 11:30 | NUR ---
ASSISTED MAGENTO DEVELOPER EMMA IN CHANGING PATIENTS GOWN AND CHUX. PATIENT HAD MULTIPLE VOIDS. TOOK DISCHARGE PHOTOS OF PATIENTS FEET BILATERALLY AND KNEE.
--- NOTE | 2019-03-17 12:12 | NUR ---
CALLED [facility] AND GAVE REPORT ON PATIENT FOR CONTINUITY OF CARE. PATIENT WILL BE UNDER DR HERNANDEZ.
--- NOTE | 2019-03-17 12:34 | NUR ---
REMOVED PICC LINE, LINE INTACT UPON REMOVAL.
--- NOTE | 2019-03-17 13:22 | NUR ---
PATIENT HAS BEEN PICKED UP BY EMT, ALL PAPERWORK SENT OVER WITH PATIENT. WRISTBANDS REMOVED, ALL BELONGINGS SENT OVER WITH PATIENT.
== END 2019-03-17 13:20 | DRG 811 ==
LOC: MED 12:41 → MTU 15:11
PROVIDERS: ADMIT General Practice; ATTEND General Practice
PROC: 30233N1 Transfusion of Nonautologous Red Blood Cells into Peripheral Vein, Percutaneous Approach (ICD-10-PCS; principal; 2019-03-14)
DX: D50.9 Iron deficiency anemia, unspecified (principal); E43 Unspecified severe protein-calorie malnutrition; R65.10 Systemic inflammatory response syndrome (SIRS) of non-infectious origin without acute organ dysfunction; G80.9 Cerebral palsy, unspecified; I48.91 Unspecified atrial fibrillation; I10 Essential (primary) hypertension; E78.00 Pure hypercholesterolemia, unspecified; F20.9 Schizophrenia, unspecified; E03.9 Hypothyroidism, unspecified; G40.909 Epilepsy, unspecified, not intractable, without status epilepticus; F32.9 Major depressive disorder, single episode, unspecified; E78.5 Hyperlipidemia, unspecified; R13.10 Dysphagia, unspecified; L97.529 Non-pressure chronic ulcer of other part of left foot with unspecified severity; L97.519 Non-pressure chronic ulcer of other part of right foot with unspecified severity; Z68.23 Body mass index [BMI] 23.0-23.9, adult; Z74.01 Bed confinement status; Z88.8 Allergy status to other drugs, medicaments and biological substances
CPT/HCPCS: 36415; 71045; 74018; 80048; 80053; 80202; 81001; 82140; 82150; 82272; 82607; 82728; 82746; 83540; 83605; 83690; 83735; 83880; 84100; 84436; 84439; 84443; 84479; 84484; 85025; 85045; 85610; 85730; 86886; 86900; 86901; 86920; 87040; 87081; 87086; 93005; 93925; 96365; 99285; C1758; J2543; J3370; J7030; J7060; P9016; Q0092; Q0163

== ENCOUNTER 2021-06-21 10:36 | Emergency (ER) | payer OTHER ==
[~2021-06-21] VITALS: Ht 157.5 cm; Wt 68.0 kg
[~2021-06-21 10:36] MED LIST changes: -AMIO200T5 PO; +AMIO200T70 PO; -MULT-153 PO; +MULT-2112 PO; -VANC750P14 IV
[2021-06-21 10:45] VITALS: BP 109/66
--- NOTE | 2021-06-21 10:54 | NUR ---
BIBA TO ER BED 13
--- NOTE | 2021-06-21 10:58 | NUR ---
Patient being evaluated by physician at bedside.
[2021-06-21] MEDS ORDERED: VANCOMYCIN 1,000 MG in DEXTROSE 5% 250 ML IV ONE (11:05)
--- NOTE | 2021-06-21 11:15 | NUR ---
56 Y/O MALE BIBA FROM [facility] C/C WOUND CHECK TO R HIP. PT HAD SX ON HIP YEARS AGO WITH HARDWARE. RETAIL ASSISTANT STORE MANAGER EVALUATED PT TODAY AND STARTED PT ON VANCO. WOUND WAS PACKED AND COVERED WITH BANDAGE PMH:SEE CHART FOR EXTENSIVE HX ALLERGIES:PROPRANOLOL
--- NOTE | 2021-06-21 11:33 | NUR ---
Radiology at bedside to take pt to XRAY
--- NOTE | 2021-06-21 11:48 | NUR ---
Pt returned from Radiology to bed 13 at this time.
[2021-06-21 12:19] LABS: BASOPHILS % (AUTO) 0.4 % (0.0-2.0); EOSINOPHILS # (AUTO) 0.3 K/uL (0-0.4); EOSINOPHILS % (AUTO) 3.7 % (0.0-4.0); HEMATOCRIT 37.4 % (36-52); LYMPHOCYTES % (AUTO) 28.6 % (20.5-51.1); MEAN CORPUSCULAR HEMOGLOBIN 28 pg (27-31); MEAN CORPUSCULAR HGB CONC 32 g/dL (33-37); MEAN CORPUSCULAR VOLUME 88.1 fL (80-94); MONOCYTES # (AUTO) 0.7 K/uL (0.8-1.0); MONOCYTES % (AUTO) 10.4 % (1.7-9.3); NEUTROPHILS % (AUTO) 56.9 % (42.2-75.2); PLATELET COUNT (AUTO) 217 K/uL (140-450); RED BLOOD CELL COUNT(AUTO) 4.24 MIL/uL (4.20-6.10)
[2021-06-21 13:30] LABS: ANION GAP 13.8 (8-16); CARBON DIOXIDE 28.4 mmol/L (21-32); CREATININE 0.8 mg/dL (0.6-1.3); POTASSIUM 4.2 mmol/L (3.5-5.1); TOTAL BILIRUBIN 0.2 mg/dL (0.0-1.0)
[2021-06-21] MEDS ORDERED: VANCOMYCIN 1,000 MG VIAL ONE (14:09)
--- NOTE | 2021-06-21 14:30 | NUR ---
Pt is asleep and resting comfortably in bed, repositioned for comfort. HOB elevated for aspirat ion precautions. VSS.
--- NOTE | 2021-06-21 17:35 | NUR ---
Report given to nurse Yancey at [facility] in [place] . Pt with be returning to room 204 at this time.
--- NOTE | 2021-06-21 19:02 | NUR ---
Patient appears to be resting comfortably in bed. Vital Signs within normal limits. Respirations even and unlabored.
--- NOTE | 2021-06-21 19:12 | NUR ---
Wound care to right hip with dry dressing done at this time.
--- NOTE | 2021-06-21 19:33 | NUR ---
Pt report given to America LEUNG. Transfer of care at this time.
[2021-06-21 20:45] VITALS: BP 110/67
== END 2021-06-21 20:45 ==
LOC: MED 10:36
DX: S70.911A Unspecified superficial injury of right hip, initial encounter (principal); M87.051 Idiopathic aseptic necrosis of right femur; I11.9 Hypertensive heart disease without heart failure; Z87.448 Personal history of other diseases of urinary system; X58.XXXA Exposure to other specified factors, initial encounter; Y93.89 Activity, other specified; Y92.89 Other specified places as the place of occurrence of the external cause; Y99.8 Other external cause status
CPT/HCPCS: 36415; 73502; 73552; 80053; 85025; 87040; 96365; 99285; J3370